=== PATIENT | male | born 1940 | race Caucasian/White ===

== ENCOUNTER 2019-04-20 11:09 | Outpatient (CLI) | payer MEDICARE, BC | END 2019-04-20 11:10 | disposition home or self-care (01) | LOC: DI 11:09 | PROVIDERS: ATTEND Family Medicine | DX: R01.1 Cardiac murmur, unspecified (principal); I35.0 Nonrheumatic aortic (valve) stenosis; I51.7 Cardiomegaly | CPT/HCPCS: 93306 ==

== ENCOUNTER 2020-01-28 08:00 | Outpatient (CLI) | payer MEDICARE, BC ==
[2020-01-28 18:37] LABS: HB2 TOTAL 10.4 g/dL; HEMOGLOBIN A1C 0.49 g/dL; HEMOGLOBIN A1C % 6.5 % (4.6-6.2)
[2020-01-28 18:59] LABS: CALCIUM 8.7 mg/dL (8.5-10.3); CREATININE 1.2 mg/dL (0.6-1.2)
[2020-01-28 19:21] LABS: CREATININE,URINE 90.9 mg/dL; MICROALBUM/CREATININE RATIO,UR 17.6 ug/mg (<30.0); MICROALBUMIN,URINE 1.6 mg/dL (0-300.0)
== END 2020-01-28 23:59 | disposition home or self-care (01) ==
LOC: LAB.WCP 08:00
PROVIDERS: ATTEND Family Medicine
DX: E11.22 Type 2 diabetes mellitus with diabetic chronic kidney disease (principal); N18.3 Chronic kidney disease, stage 3 (moderate)
CPT/HCPCS: 36415; 80048; 82043; 82570; 83036

== ENCOUNTER 2020-05-17 08:00 | Outpatient (CLI) | payer MEDICARE, BC ==
[2020-05-17 18:29] LABS: BASOPHILS % (AUTO) 0.6 %; EOSINOPHILS # (AUTO) 0.1 10^3/uL (0.0-0.7); EOSINOPHILS % (AUTO) 2.6 %; HGB - HEMOGLOBIN 10.9 g/dL (14.0-18.0); LYMPHOCYTES # (AUTO) 1.2 10^3/uL (1.5-3.5); LYMPHOCYTES % (AUTO) 21.5 %; MEAN CORPUSCULAR HEMOGLOBIN 31.5 pg (27.0-31.0); MEAN CORPUSCULAR HGB CONC 33.3 g/dL (32.0-36.0); MEAN CORPUSCULAR VOLUME 94.5 fL (80.0-94.0); MEAN PLATELET VOLUME 12.9 fL (7.4-11.4); MONOCYTES # (AUTO) 0.7 10^3/uL (0.0-1.0); MONOCYTES % (AUTO) 12.1 %; NEUTROPHILS # (AUTO) 3.4 10^3/uL (1.5-6.6); NEUTROPHILS % (AUTO) 62.8 %; PLT - PLATELET COUNT 165 10^3/uL (130-450); RED BLOOD COUNT 3.46 10^6/uL (4.70-6.10); RED CELL DISTRIBUTION WIDTH 15.1 % (12.0-15.0); WHITE BLOOD COUNT 5.5 x10^3/uL (4.8-10.8)
[2020-05-17 19:28] LABS: ALBUMIN 4.1 g/dL (3.2-5.5); ALKALINE PHOSPHATASE 55 IU/L (42-121); ALT ALANINE AMINOTRANSFERASE 17 IU/L (10-60); AST ASPARTATE AMINOTRANSFERASE 19 IU/L (10-42); BUN - BLOOD UREA NITROGEN 36 mg/dL (6-20); CALCIUM 9.5 mg/dL (8.5-10.3); CARBON DIOXIDE - CO2 25 mmol/L (21-32); CHLORIDE 99 mmol/L (101-111); CHOL/HDL RATIO 4.2 (<5.0); CHOLESTEROL 130 mg/dL; CREATININE 1.5 mg/dL (0.6-1.2); GLUCOSE 161 mg/dL (70-100); HDL CHOLESTEROL 31 mg/dL; LDL CHOLESTEROL,CALCULATED 76 mg/dL; LDL/HDL RATIO 2.5 (<3.6); SODIUM 134 mmol/L (135-145); TOTAL PROTEIN 8.1 g/dL (6.7-8.2); VLDL CHOLESTEROL 23 mg/dL
== END 2020-05-17 23:59 | disposition home or self-care (01) ==
LOC: LAB.WCP 08:00
PROVIDERS: ATTEND Family Medicine
DX: E11.22 Type 2 diabetes mellitus with diabetic chronic kidney disease (principal); I12.9 Hypertensive chronic kidney disease with stage 1 through stage 4 chronic kidney disease, or unspecified chronic kidney disease; N18.9 Chronic kidney disease, unspecified; D63.1 Anemia in chronic kidney disease; E78.5 Hyperlipidemia, unspecified
CPT/HCPCS: 36415; 80053; 80061; 83721; 84443; 85025

== ENCOUNTER 2020-11-09 13:08 | Outpatient (CLI) | payer MEDICARE, BC ==
[2020-11-09 18:27] LABS: BASOPHILS % (AUTO) 0.8 %; EOSINOPHILS # (AUTO) 0.2 10^3/uL (0.0-0.7); HCT - HEMATOCRIT 31.9 % (42.0-52.0); HGB - HEMOGLOBIN 10.9 g/dL (14.0-18.0); LYMPHOCYTES # (AUTO) 1.1 10^3/uL (1.5-3.5); LYMPHOCYTES % (AUTO) 22.1 %; MEAN CORPUSCULAR HGB CONC 34.2 g/dL (32.0-36.0); MEAN CORPUSCULAR VOLUME 93.5 fL (80.0-94.0); MEAN PLATELET VOLUME 13.1 fL (7.4-11.4); MONOCYTES # (AUTO) 0.7 10^3/uL (0.0-1.0); MONOCYTES % (AUTO) 13.4 %; NEUTROPHILS # (AUTO) 3.1 10^3/uL (1.5-6.6); NEUTROPHILS % (AUTO) 60.3 %; PLT - PLATELET COUNT 152 10^3/uL (130-450); RED BLOOD COUNT 3.41 10^6/uL (4.70-6.10); RED CELL DISTRIBUTION WIDTH 14.6 % (12.0-15.0); WHITE BLOOD COUNT 5.1 x10^3/uL (4.8-10.8)
[2020-11-09 18:30] LABS: CREATININE,URINE 98.2 mg/dL; MICROALBUM/CREATININE RATIO,UR 15.3 ug/mg (<30.0); MICROALBUMIN,URINE 1.5 mg/dL (0-300.0)
[2020-11-09 18:42] LABS: ALKALINE PHOSPHATASE 57 IU/L (42-121); ALT ALANINE AMINOTRANSFERASE 20 IU/L (10-60); AST ASPARTATE AMINOTRANSFERASE 17 IU/L (10-42); BUN - BLOOD UREA NITROGEN 42 mg/dL (6-20); CALCIUM 9.3 mg/dL (8.5-10.3); CARBON DIOXIDE - CO2 23 mmol/L (21-32); CHLORIDE 99 mmol/L (101-111); CHOL/HDL RATIO 4.1 (<5.0); CHOLESTEROL 130 mg/dL; CREATININE 1.3 mg/dL (0.6-1.2); GFR - MDRD 53 (>89); GLUCOSE 184 mg/dL (70-100); HDL CHOLESTEROL 32 mg/dL; LDL CHOLESTEROL,CALCULATED 73 mg/dL; LDL/HDL RATIO 2.3 (<3.6); POTASSIUM 4.5 mmol/L (3.5-5.0); SODIUM 135 mmol/L (135-145); TOTAL PROTEIN 7.9 g/dL (6.7-8.2); TRIGLYCERIDES 124 mg/dL; VLDL CHOLESTEROL 25 mg/dL
[2020-11-09 18:49] LABS: THYROID STIMULATING HORMONE 2.67 uIU/mL (0.34-5.60)
[2020-11-09 20:28] LABS: ESTIMATED AVERAGE GLUCOSE 143 mg/dL (70-100); HEMOGLOBIN A1c% 6.6 % (4.27-6.07)
== END 2020-11-09 23:59 | disposition home or self-care (01) ==
LOC: LAB.WCP 13:08
PROVIDERS: ATTEND Family Medicine
DX: E11.9 Type 2 diabetes mellitus without complications (principal); E78.5 Hyperlipidemia, unspecified; I49.3 Ventricular premature depolarization; G25.0 Essential tremor; D64.9 Anemia, unspecified; I10 Essential (primary) hypertension
CPT/HCPCS: 36415; 80053; 80061; 82043; 82570; 83036; 83721; 84443; 85025

== ENCOUNTER 2021-05-11 10:25 | Outpatient (CLI) | payer MEDICARE, BC ==
[2021-05-11 18:02] LABS: BASOPHILS # (AUTO) 0.1 10^3/uL (0.0-0.1); BASOPHILS % (AUTO) 0.7 %; EOSINOPHILS # (AUTO) 0.1 10^3/uL (0.0-0.7); EOSINOPHILS % (AUTO) 1.5 %; HCT - HEMATOCRIT 30.7 % (42.0-52.0); LYMPHOCYTES % (AUTO) 14.5 %; MEAN CORPUSCULAR HEMOGLOBIN 31.6 pg (27.0-31.0); MEAN CORPUSCULAR HGB CONC 32.6 g/dL (32.0-36.0); MEAN CORPUSCULAR VOLUME 97.2 fL (80.0-94.0); MEAN PLATELET VOLUME 14.1 fL (7.4-11.4); MONOCYTES # (AUTO) 0.6 10^3/uL (0.0-1.0); MONOCYTES % (AUTO) 8.7 %; NEUTROPHILS # (AUTO) 5.3 10^3/uL (1.5-6.6); NEUTROPHILS % (AUTO) 74.3 %; PLT - PLATELET COUNT 171 10^3/uL (130-450); RED BLOOD COUNT 3.16 10^6/uL (4.70-6.10); RED CELL DISTRIBUTION WIDTH 14.6 % (12.0-15.0); WHITE BLOOD COUNT 7.1 x10^3/uL (4.8-10.8)
[2021-05-11 18:16] LABS: CREATININE,URINE 57.7 mg/dL; MICROALBUM/CREATININE RATIO,UR 32.9 ug/mg (<30.0); MICROALBUMIN,URINE 1.9 mg/dL (0-300.0)
[2021-05-11 18:25] LABS: THYROID STIMULATING HORMONE 3.78 uIU/mL (0.34-5.60)
[2021-05-11 18:29] LABS: ALBUMIN 4.1 g/dL (3.2-5.5); ALBUMIN/GLOBULIN RATIO 1.1 (1.0-2.2); ALKALINE PHOSPHATASE 53 IU/L (42-121); ALT ALANINE AMINOTRANSFERASE 16 IU/L (10-60); AST ASPARTATE AMINOTRANSFERASE 16 IU/L (10-42); BILIRUBIN,TOTAL 1.4 mg/dL (0.2-1.0); BUN - BLOOD UREA NITROGEN 32 mg/dL (6-20); CALCIUM 10.1 mg/dL (8.5-10.3); CARBON DIOXIDE - CO2 22 mmol/L (21-32); CHLORIDE 98 mmol/L (101-111); CHOL/HDL RATIO 4.3 (<5.0); CHOLESTEROL 129 mg/dL; CREATININE 1.3 mg/dL (0.6-1.2); GFR - MDRD 53 (>89); GLUCOSE 151 mg/dL (70-100); HDL CHOLESTEROL 30 mg/dL; LDL CHOLESTEROL,CALCULATED 80 mg/dL; LDL/HDL RATIO 2.7 (<3.6); POTASSIUM 4.5 mmol/L (3.5-5.0); SODIUM 133 mmol/L (135-145); TOTAL PROTEIN 7.7 g/dL (6.7-8.2); TRIGLYCERIDES 97 mg/dL; VLDL CHOLESTEROL 19 mg/dL
[2021-05-11 21:08] LABS: ESTIMATED AVERAGE GLUCOSE 120 mg/dL (70-100); HEMOGLOBIN A1c% 5.8 % (4.27-6.07)
== END 2021-05-11 23:59 | disposition home or self-care (01) ==
LOC: LAB.WCP 10:25
PROVIDERS: ATTEND Family Medicine
DX: E78.5 Hyperlipidemia, unspecified (principal); E11.9 Type 2 diabetes mellitus without complications; I10 Essential (primary) hypertension
CPT/HCPCS: 36415; 80053; 80061; 82043; 82570; 83036; 83721; 84443; 85025

== ENCOUNTER 2021-07-07 14:25 | Emergency (ER) | payer MEDICARE, BC ==
--- NOTE | 2021-07-07 14:56 | ED Physician Documentation ---
History of Present Illness - Stated complaint Stated Complaint: SOA - Chief complaint Chief Complaint: Resp - Additonal information Additional information: 81-year-old male who carries a history of hypertension, diabetes as well as known aortic stenosis presents the emergency department with increased lower extremity edema and orthopnea and exertional dyspnea. He denies any leg pain. He states that for about a year and a half he has been taking 60 mg of Lasix daily. When he is up and about during the day the leg swelling gets progressively worse. When he wakes up in the morning however the edema is improved. He does have some increased swelling on the right leg in comparison to the left. No history of DVT or cancer. No cough, no fevers, no hemoptysis. He does feel bloated in his abdomen. No melena hematochezia. He reports that his physician was concerned he may have GERD or gastritis and started him on omeprazole. The omeprazole made him wheeze so he stopped taking it and now feels that the gastritis has improved without any further treatment Last echocardiogram in our system was completed in April 2019. It showed an ejection fraction of 60%. He had significantly calcified aortic leaflet with severe aortic stenosis. Meds include but not limited to: lasix 60 mg daily, carvedilol, metformin, glipizide, trulicity Review of Systems Constitutional: denies: Fever, Chills Eyes: reports: Reviewed and negative Ears: reports: Reviewed and negative Nose: reports: Reviewed and negative Throat: reports: Reviewed and negative Cardiac: reports: Pedal edema. denies: Chest pain / pressure, Palpitations, Calf pain Respiratory: reports: Dyspnea. denies: Cough, Hemoptysis, Wheezing GI: reports: Abdominal Pain. denies: Nausea, Vomiting, Diarrhea, Hematemesis, Bloody / black stool : denies: Dysuria, Frequency, Hesitancy, Unable to Void Skin: denies: Rash, Lesions Musculoskeletal: reports: Reviewed and negative Neurologic: reports: Reviewed and negative PD PAST MEDICAL HISTORY - Past Medical History Cardiovascular: Congestive heart failure, Hypertension, High cholesterol Endocrine/Autoimmune: Type 2 diabetes HEENT: Glaucoma - Past Surgical History HEENT: Tonsil/Adenoidectomy - Present Medications Home Medications: Ambulatory Orders Medication Instructions Recorded Confirmed Aspirin [Aspir 81] 81 mg PO DAILY 04/08/13 04/08/13 Furosemide [Lasix] 40 mg PO DAILY 04/08/13 04/08/13 Glipizide [Glipizide Xl] 10 mg PO DAILY 04/08/13 04/08/13 Ibuprofen [Motrin] 800 mg PO Q8H PRN #20 tablet 04/08/13 Lisinopril 20 mg 04/08/13 04/08/13 Metformin HCl [Riomet] 1,000 mg PO BID 04/08/13 04/08/13 Simvastatin [Zocor] 10 mg PO HS 04/08/13 04/08/13 Travoprost 0.004% Ophth Drops 1 drops OPTH QPM 04/08/13 04/08/13 [Travatan Z] carvediloL [Carvedilol] 3.125 mg PO BID 04/08/13 04/08/13 methocarbamoL [Robaxin] 500 mg PO Q6H PRN #20 tablet 04/08/13 oxyCODONE/ACET 5/325 [Percocet 5 1 each PO Q4-6H PRN #20 tablet 04/08/13 mg/325 mg] - Allergies Allergies/Adverse Reactions: Allergies Allergy/AdvReac Type Severity Reaction Status Date / Time No Known Drug Allergies Allergy Verified 07/07/21 14:37 - Social History Does the pt smoke?: No Smoking Status: Never smoker Does the pt drink ETOH?: Yes Does the pt have substance abuse?: No - POLST Patient has POLST: No PD ED PE EXPANDED - General General: Alert, No acute distress, Well developed/nourished - Cardiac Cardiac: Regular Rate, Murmur Present (2/6 systolic ejection murmur), Radial strong equal, Pedal strong equal, Cap refill < 2 sec. No: Prolonged cap refill - Respiratory Respiratory: Clear to ausultation hailee. No: Distress, Labored - Abdomen Abdomen: Normal Bowel sounds. No: Tender to palpation - Extremities Extremities: Normal, Pedal edema R, Pedal edema L (Bilateral pitting edema feet to mid calf.), Pedal Pulses Present. No: Deformity, Tenderness - Neuro Neuro: Alert and Oriented X 3, CNII-XII intact, Normal gait, Normal finger nose, Normal speech. No: Confused, Disoriented - GCS Eye Opening: Spontaneous Motor: Obeys Commands Verbal: Oriented Total: 15 Results - Vitals Vitals: Vital Signs - 24 hr 07/07/21 07/07/21 07/07/21 14:33 14:49 15:00 Temperature 36.4 C L Heart Rate 91 89 82 Respiratory 18 23 19 Rate Blood Pressure 119/72 125/81 H 113/75 O2 Saturation 96 93 95 07/07/21 16:00 Temperature Heart Rate 75 Respiratory 20 Rate Blood Pressure 108/68 O2 Saturation 97 Oxygen O2 Source Room air - EKG (time done) 1431 Rate: Rate (enter#) (86) Rhythm: NSR [place]: Normal Intervals: Normal [place] QRS: Normal Ischemia: ST elevation c/w repol Compare to prior EKG: Old EKG unavailable Computer interpretation: Agree with computer - Labs Labs: Laboratory Tests 07/07/21 07/07/21 07/07/21 15:00 15:00 15:00 WBC 5.7 RBC 3.16 L Hgb 10.2 L Hct 29.9 L MCV 94.6 H MCH 32.3 H MCHC 34.1 RDW 15.4 H Plt Count 155 MPV 12.3 H Neut # (Auto) 4.4 Lymph # (Auto) 0.6 L [place] # (Auto) 0.6 Eos # (Auto) 0.1 Baso # (Auto) 0.0 Absolute Nucleated RBC 0.00 Nucleated RBC % 0.0 Sodium 135 Potassium 4.0 Chloride 98 L Carbon Dioxide 27 Anion Gap 10.0 BUN 32 H Creatinine 1.4 H Estimated GFR (MDRD) 49 L Glucose 190 H Calcium 11.2 H Total Bilirubin 2.4 H AST 19 ALT 17 Alkaline Phosphatase 52 Troponin I High Sens B-Natriuretic Peptide 1872 H Total Protein 7.7 Albumin 4.1 Globulin 3.6 Albumin/Globulin Ratio 1.1 Lipase 53 H 07/07/21 15:00 WBC RBC Hgb Hct MCV MCH MCHC RDW Plt Count MPV Neut # (Auto) Lymph # (Auto) [place] # (Auto) Eos # (Auto) Baso # (Auto) Absolute Nucleated RBC Nucleated RBC % Sodium Potassium Chloride Carbon Dioxide Anion Gap BUN Creatinine Estimated GFR (MDRD) Glucose Calcium Total Bilirubin AST ALT Alkaline Phosphatase Troponin I High Sens 21.2 H* B-Natriuretic Peptide Total Protein Albumin Globulin Albumin/Globulin Ratio Lipase - Rads (name of study) CXR Radiology: Final report received (Diffusely increased interstitial markings in both lungs with bibasilar airspace consolidation and atelectasis, along with small bilateral pleural effusions. Findings may represent pulmonary edema or infection.) PD MEDICAL DECISION MAKING - ED course Complexity details: reviewed results, re-evaluated patient, d/w patient, d/w homemaking rehabilitation consultant (Dr. Hurtado) ED course: 81-year-old male presents emergency department for evaluation of worsening orthopnea, dyspnea and lower extremity edema. He has a history of hypertension and diabetes. He last had an echocardiogram completed here at this hospital in April 2019. Showed an ejection fraction preserved at about 60 to 65%. However the aortic valve leaflets were noted to be fairly calcified and he had moderate to severe aortic regurgitation. For about the last 18 months the patient has been getting taking 60 mg of Lasix daily but over the last 4 to 6 weeks this has not limited his edema or dyspnea. Screening labs today show a moderate anemia with a hemoglobin of 10.2. This is seemingly at the patient's baseline in comparison to previous labs. We do note a modestly elevated BUN of 34 and a creatinine of 1.4. However again this is typical of the patient's previous lab values. He was noted to have a BNP of over 1800. Chest x-ray was suggestive of small bilateral Pleural effusions and a chest x- ray pattern consistent with CHF. I did discuss this case with our hospitalist Dr. Hurtado as she is also a rehab manager. Given the patient's history of aortic stenosis and the markedly elevated BNP today she feels he would likely benefit from additional diuresis here in the emergency department and over the next 3 days. But given that he is not hypoxic he would not need to be admitted to the hospital for further treatment. She would recommend an emergent outpatient echocardiogram for further evaluation of his aortic stenosis. This markedly elevated BNP likely represents a worsening systolic heart failure in the setting of aortic stenosis Did attempt multiple times to get in touch with the patient's primary care provider Dr. Richter to arrange outpatient echo however the on-call physician did not return phone calls. Departure - Departure Disposition: 01 Home, Self Care Clinical Impression: Elevated brain natriuretic peptide (BNP) level Systolic heart failure Qualifiers: Heart failure chronicity: acute on chronic Qualified Code(s): I50.23 - Acute on chronic systolic (congestive) heart failure Aortic stenosis Qualifiers: Cardiac valve disease etiology: etiology unspecified Qualified Code(s): I35.0 - Nonrheumatic aortic (valve) stenosis Condition: Stable Record reviewed to determine appropriate education?: Yes Instructions: Aortic Stenosis Ch Follow-Up: Corby Price MD [Primary Care Provider] - Comments: Devon wick were seen in the emergency department today for 1 month of increasing lower extremity edema as well as shortness of air when walking and laying flat. Your screening labs today show that you are developing some heart failure. This is most likely related to the aortic stenosis of your heart. This is limiting the ability of the heart to pump blood out to your body thus fluid backs up in your lungs and legs. It is very important that your primary doctor order an echocardiogram within the next week. This will evaluate how severe the aortic stenosis has gotten. Over the next 3 days (Saturday, Saturday and Saturday) I would like you to take 60 mg of Lasix twice a day. On Saturday you may resume taking 60 mg daily. Your primary doctor will likely need to make a referral for you to a cardiolo gist For longer-term evaluation and management of this aortic stenosis. If over the weekend you are having worsening shortness of air, the swelling in the legs is not improving, you fail to make good urine output, you develop chest pain or have any fainting episodes then you are to return immediately to the ER for a second evaluation.
[2021-07-07 15:04] LABS: BASOPHILS % (AUTO) 0.5 %; EOSINOPHILS # (AUTO) 0.1 10^3/uL (0.0-0.7); EOSINOPHILS % (AUTO) 1.9 %; HCT - HEMATOCRIT 29.9 % (42.0-52.0); HGB - HEMOGLOBIN 10.2 g/dL (14.0-18.0); LYMPHOCYTES # (AUTO) 0.6 10^3/uL (1.5-3.5); LYMPHOCYTES % (AUTO) 10.3 %; MEAN CORPUSCULAR HEMOGLOBIN 32.3 pg (27.0-31.0); MEAN CORPUSCULAR HGB CONC 34.1 g/dL (32.0-36.0); MEAN CORPUSCULAR VOLUME 94.6 fL (80.0-94.0); MEAN PLATELET VOLUME 12.3 fL (7.4-11.4); MONOCYTES # (AUTO) 0.6 10^3/uL (0.0-1.0); MONOCYTES % (AUTO) 10.3 %; NEUTROPHILS # (AUTO) 4.4 10^3/uL (1.5-6.6); NEUTROPHILS % (AUTO) 76.8 %; PLT - PLATELET COUNT 155 10^3/uL (130-450); RED BLOOD COUNT 3.16 10^6/uL (4.70-6.10); RED CELL DISTRIBUTION WIDTH 15.4 % (12.0-15.0); WHITE BLOOD COUNT 5.7 x10^3/uL (4.8-10.8)
--- NOTE | 2021-07-07 15:18 | XRAY Report ---
PROCEDURE: Chest 1 View X-Ray INDICATIONS: Chest Pain TECHNIQUE: One view of the chest was acquired. COMPARISON: None. FINDINGS: Surgical changes and devices: None. Lungs and pleura: Small bilateral pleural effusions. Diffusely increased interstitial markings in bot h lungs with consolidation and atelectasis in the lung bases, right greater than left. Mediastinum: Mediastinal contours appear normal. Heart size is normal. Bones and chest wall: No suspicious bony lesions. Overlying soft tissues appear unremarkable. IMPRESSION: Diffusely increased interstitial markings in both lungs with bibasilar airspace consolidation and ate lectasis, along with small bilateral pleural effusions. Findings may represent pulmonary edema or inf ection. Reviewed by: Arya Dias MD on 07/07/2021 2:16 PM [facility] Approved by: Arya Dias MD on 07/07/2021 2:16 PM [facility] Station ID: [id number]
[2021-07-07 15:22] LABS: ALBUMIN 4.1 g/dL (3.2-5.5); ALBUMIN/GLOBULIN RATIO 1.1 (1.0-2.2); BILIRUBIN,TOTAL 2.4 mg/dL (0.2-1.0); CALCIUM 11.2 mg/dL (8.5-10.3); CREATININE 1.4 mg/dL (0.6-1.2); TOTAL PROTEIN 7.7 g/dL (6.7-8.2)
[2021-07-07] MEDS ORDERED: FUROSEMIDE 40 MG/4 ML VIAL IVP STA (16:12)
[2021-07-07 17:23] VITALS: BP 102/90
== END 2021-07-07 17:48 | disposition home or self-care (01) ==
LOC: ED 14:25
DX: I11.0 Hypertensive heart disease with heart failure (principal); I50.23 Acute on chronic systolic (congestive) heart failure; I35.0 Nonrheumatic aortic (valve) stenosis; E11.9 Type 2 diabetes mellitus without complications; Z79.84 Long term (current) use of oral hypoglycemic drugs
CPT/HCPCS: 36415; 80053; 83690; 83880; 84484; 85025; 93005; 96374; 99284

== ENCOUNTER 2021-07-18 14:50 | Outpatient (CLI) | payer MEDICARE, BC ==
[2021-07-18 18:25] LABS: CALCIUM 10.4 mg/dL (8.5-10.3); CREATININE 1.7 mg/dL (0.6-1.2); POTASSIUM 3.6 mmol/L (3.5-5.0)
== END 2021-07-18 23:59 | disposition home or self-care (01) ==
LOC: LAB.WCP 14:50
PROVIDERS: ATTEND Family Medicine
DX: N18.31 Chronic kidney disease, stage 3a (principal); J90 Pleural effusion, not elsewhere classified; I35.0 Nonrheumatic aortic (valve) stenosis; R60.0 Localized edema
CPT/HCPCS: 36415; 80048; 83880

== ENCOUNTER 2021-08-19 21:27 | Outpatient (CLI) | payer MEDICARE, BC | END 2021-08-19 21:28 | disposition critical access hospital (66) | LOC: EMS 21:27 | DX: R06.00 Dyspnea, unspecified (principal) | CPT/HCPCS: A0425; A0429 ==

== ENCOUNTER 2021-08-19 21:58 | Emergency (ER) | payer MEDICARE, BC ==
--- NOTE | 2021-08-19 22:05 | ED Physician Documentation ---
PD HPI DYSPNEA - Stated complaint Stated Complaint: COUGH/SOA - History obtained from History obtained from: Patient, EMS - History of Present Illness Timing - onset: How many months ago (3) Timing - details: Gradual onset, Constant, Waxing and waning Pain level max: 0 Pain level now: 0 Improved by: Rest Worsened by: Exertion, Laying flat Associated symptoms: Bilateral edema. No: Fever, Cough, Hemoptysis, Wheezing, Chest pain / discomfort, Palpitations, Diaphoresis Recently seen: Emergency Dept (T+R last month for similar symptoms) - Additional information Additional information: BIBA for dyspnea, gradually progressive over past few months. He was T+R from this ED for similar c/o last month, has followed up with PMD and has echo scheduled for next week. He says he can no longer ambulate without becoming severely short of breath and this is why he comes to ED tonight. He also says that tonight when ambulating, he became lightheaded, had generalized weakness, dimmed vision, and tinnitus. He felt like he was going to pass out and this also prompted him to call 911. patient is COVID vaccinated without booster. Review of Systems Constitutional: denies: Fever, Chills, Sweats Cardiac: reports: Pedal edema. denies: Chest pain / pressure, Palpitations Respiratory: reports: Dyspnea, Cough (occasional nonproductive cough). denies: Hemoptysis, Wheezing GI: reports: Reviewed and negative : denies: Dysuria, Frequency Musculoskeletal: reports: Extremity swelling Neurologic: reports: Generalized weakness, Near syncope. denies: Focal weakness, Numbness, Headache PD PAST MEDICAL HISTORY - Past Medical History Cardiovascular: Congestive heart failure, Hypertension, High cholesterol Endocrine/Autoimmune: Type 2 diabetes HEENT: Glaucoma - Past Surgical History HEENT: Tonsil/Adenoidectomy - Present Medications Home Medications: Ambulatory Orders Medication Instructions Recorded Confirmed Aspirin [Aspir 81] 81 mg PO DAILY 04/08/13 08/20/21 Furosemide [Lasix] 40 mg PO DAILY 04/08/13 08/20/21 Glipizide [Glipizide Xl] 5 mg PO DAILY 04/08/13 08/20/21 Simvastatin [Zocor] 10 mg PO HS 04/08/13 08/20/21 Travoprost 0.004% Ophth Drops 1 drops OPTH QPM 04/08/13 08/20/21 [Travatan Z] carvediloL [Carvedilol] 3.125 mg PO BID 04/08/13 08/20/21 Lisinopril [Zestril] 10 mg PO QPM 08/20/21 08/20/21 Metformin HCl [Metformin ER 500 mg PO BID 08/20/21 08/20/21 Osmotic] Multivitamin 1 tab PO DAILY 08/20/21 08/20/21 Ubidecarenone [Co Q-10] 300 mg PO DAILY 08/20/21 08/20/21 Vitamin B Complex 1 tab PO DAILY 08/20/21 08/20/21 - Allergies Allergies/Adverse Reactions: Allergies Allergy/AdvReac Type Severity Reaction Status Date / Time No Known Drug Allergies Allergy Verified 08/19/21 22:08 - Social History Does the pt smoke?: No Smoking Status: Never smoker Does the pt drink ETOH?: Yes Does the pt have substance abuse?: No - POLST Patient has POLST: No PD ED PE NORMAL - Vitals Vital signs reviewed: Yes - General General: Alert and oriented X 3, No acute distress, Well developed/nourished - HEENT HEENT: Moist mucous membranes - Neck Neck: Supple, no meningeal sign - Respiratory Respiratory: No respiratory distress - Abdomen Abdomen: Soft, Non tender, Non distended PD ED PE EXPANDED - Cardiac Cardiac: Tachy, Regular Rhythm - Respiratory Respiratory: Other (diminished lung sounds with bibasilar rales) - Derm Derm: Jaundiced - Extremities Extremities: Pedal edema bilateral Results - Vitals Vitals: Vital Signs - 24 hr 08/20/21 08/20/21 08/20/21 01:06 04:00 05:14 Temperature 36.3 C L Heart Rate 89 97 95 Heart Rate [ Sitting] Heart Rate [ Standing] Heart Rate [ Supine] Respiratory 16 14 23 Rate Blood Pressure 114/85 H 103/63 120/62 Blood Pressure [Sitting] Blood Pressure [Standing] Blood Pressure [Supine] O2 Saturation 96 96 96 08/20/21 08/20/21 08/20/21 05:26 06:50 07:57 Temperature 36.1 C L 36.3 C L Heart Rate 93 87 Heart Rate [ 101 H Sitting] Heart Rate [ 96 Standing] Heart Rate [ 94 Supine] Respiratory 18 28 H Rate Blood Pressure 102/80 105/81 H Blood Pressure 106/77 [Sitting] Blood Pressure 91/61 [Standing] Blood Pressure 99/74 [Supine] O2 Saturation 97 86 L 08/20/21 08/20/21 08/20/21 09:27 10:44 11:56 Temperature 36.2 C L Heart Rate 83 97 86 Heart Rate [ Sitting] Heart Rate [ Standing] Heart Rate [ Supine] Respiratory 24 22 18 Rate Blood Pressure 107/82 H 117/104 H 102/80 Blood Pressure [Sitting] Blood Pressure [Standing] Blood Pressure [Supine] O2 Saturation 100 95 98 Oxygen O2 Source Room air Oxygen Flow Rate 2 - EKG (time done) No standard instances Rate: Rate (enter#) (100) Rhythm: NSR [place]: Normal Intervals: Normal [place] QRS: Normal Ischemia: Normal ST segments - Labs Labs: Laboratory Tests 08/19/21 08/19/21 08/19/21 22:28 22:58 22:58 WBC 6.9 RBC 3.15 L Hgb 9.8 L Hct 30.1 L MCV 95.6 H MCH 31.1 H MCHC 32.6 RDW 16.6 H Plt Count 190 MPV 14.1 H Neut # (Auto) 5.6 Lymph # (Auto) 0.6 L Potter # (Auto) 0.7 Eos # (Auto) 0.0 Baso # (Auto) 0.0 Absolute Nucleated RBC 0.02 Nucleated RBC % 0.3 PT 18.2 H INR 1.6 H APTT 28.4 Sodium Potassium Chloride Carbon Dioxide Anion Gap BUN Creatinine Estimated GFR (MDRD) Glucose Calcium Total Bilirubin AST ALT Alkaline Phosphatase Ammonia Troponin I High Sens B-Natriuretic Peptide Total Protein Albumin Globulin Albumin/Globulin Ratio Lipase Nasal Adenovirus (PCR) NOT DETECTED Nasal B. parapertussis DNA (PCR) NOT DETECTED Nasal Coronavir 229E PCR NOT DETECTED Nasal Coronavir HKU1 PCR NOT DETECTED Nasal Coronavir NL63 PCR NOT DETECTED Nasal Coronavir OC43 PCR NOT DETECTED Nasal Enterovir/Rhinovir PCR NOT DETECTED Nasal Influenza B PCR NOT DETECTED Nasal Influenza A PCR NOT DETECTED Nasal Parainfluen 1 PCR NOT DETECTED Nasal Parainfluen 2 PCR NOT DETECTED Nasal Parainfluen 3 PCR NOT DETECTED Nasal Parainfluen 4 PCR NOT DETECTED Nasal RSV (PCR) NOT DETECTED Nasal B.pertussis DNA PCR NOT DETECTED Nasal C.pneumoniae (PCR) NOT DETECTED Ladarius Human Metapneumo PCR NOT DETECTED Nasal M.pneumoniae (PCR) NOT DETECTED Nasal SARS-CoV-2 (PCR) NOT DETECTED 08/19/21 08/19/21 08/19/21 22:58 22:58 22:58 WBC RBC Hgb Hct MCV MCH MCHC RDW Plt Count MPV Neut # (Auto) Lymph # (Auto) Potter # (Auto) Eos # (Auto) Baso # (Auto) Absolute Nucleated RBC Nucleated RBC % PT INR APTT Sodium 135 Potassium 4.1 Chloride 94 L Carbon Dioxide 26 Anion Gap 15.0 H BUN 60 H Creatinine 1.9 H Estimated GFR (MDRD) 34 L Glucose 201 H Calcium 12.0 H* Total Bilirubin 4.2 H AST 542 H ALT 601 H Alkaline Phosphatase 105 Ammonia Troponin I High Sens 34.2 H* B-Natriuretic Peptide 4023 H Total Protein 8.0 Albumin 3.9 Globulin 4.1 Albumin/Globulin Ratio 1.0 Lipase 27 Nasal Adenovirus (PCR) Nasal B. parapertussis DNA (PCR) Nasal Coronavir 229E PCR Nasal Coronavir HKU1 PCR Nasal Coronavir NL63 PCR Nasal Coronavir OC43 PCR Nasal Enterovir/Rhinovir PCR Nasal Influenza B PCR Nasal Influenza A PCR Nasal Parainfluen 1 PCR Nasal Parainfluen 2 PCR Nasal Parainfluen 3 PCR Nasal Parainfluen 4 PCR Nasal RSV (PCR) Nasal B.pertussis DNA PCR Nasal C.pneumoniae (PCR) Ladarius Human Metapneumo PCR Nasal M.pneumoniae (PCR) Nasal SARS-CoV-2 (PCR) 08/20/21 08/20/21 08/20/21 01:21 01:21 01:21 WBC RBC Hgb Hct MCV MCH MCHC RDW Plt Count MPV Neut # (Auto) Lymph # (Auto) Potter # (Auto) Eos # (Auto) Baso # (Auto) Absolute Nucleated RBC Nucleated RBC % PT INR APTT Sodium Potassium Chloride Carbon Dioxide Anion Gap BUN Creatinine Estimated GFR (MDRD) Glucose Calcium 12.0 H* Total Bilirubin AST ALT Alkaline Phosphatase Ammonia 24.8 Troponin I High Sens 37.0 H* B-Natriuretic Peptide Total Protein Albumin Globulin Albumin/Globulin Ratio Lipase Nasal Adenovirus (PCR) Nasal B. parapertussis DNA (PCR) Nasal Coronavir 229E PCR Nasal Coronavir HKU1 PCR Nasal Coronavir NL63 PCR Nasal Coronavir OC43 PCR Nasal Enterovir/Rhinovir PCR Nasal Influenza B PCR Nasal Influenza A PCR Nasal Parainfluen 1 PCR Nasal Parainfluen 2 PCR Nasal Parainfluen 3 PCR Nasal Parainfluen 4 PCR Nasal RSV (PCR) Nasal B.pertussis DNA PCR Nasal C.pneumoniae (PCR) Ladarius Human Metapneumo PCR Nasal M.pneumoniae (PCR) Nasal SARS-CoV-2 (PCR) - Rads (name of study) chest xray Radiology: Prelim report reviewed, See rad report PD MEDICAL DECISION MAKING - ED course Complexity details: reviewed old records, reviewed results, re-evaluated patient, considered differential, d/w patient ED course: presents with steadily worsening [place] that has progressed to the point of feeling too short of breath to ambulate around his house. He also describes near-syncope that occurred this evening when he stood and tried to ambulate. He has bilateral pleural effusions on CXR , BMP over 4000. He has mildly elevated high-sensitivity troponin that does not have significant change on 2-hour repeat. His LFTs (bilirubin, AST, and ALT) are all elevated; notably, his bilirubin is 4.2 whereas it was 2.4 last month, and his AST/ALT are 542 and 601 (respectively) but were normal last month. His pulse ox on room air is low/mid 90s and there is no significant change when ED RNs ambulated patient (with walker and significant assistance), but patient rapidly felt like he was going to pass out again after only taking a few steps and is thus put into a wheelchair and brought back to his ED bed. when orthostatics are performed, his blood pressure supine is 106/77 sitting, and standing drops to 91/61. [facility] hospitalist is consulted (Dr. Curry). She evaluated patient in ED and performed a bedside echo US; she notes an EF of 20% and findings of critical . She recommends transfer to higher level of care. I discussed the case with Dr. Kothari, wireless team member at [facility], who agrees patient is appropriate for transfer. Due to lack of bed availability (at as well as other appropriate facilities), patient is held in ED pending bed availability. Care of patient turned over to Dr. Awad at end of my shift. Departure - Departure Disposition: 02 Transfer Acute Care Hosp Clinical Impression: Near syncope Dyspnea Qualifiers: Dyspnea type: dyspnea on exertion Qualified Code(s): R06.00 - Dyspnea, unspecified Condition: Stable Discharge Date/Time: 08/20/21 18:55
[2021-08-19] MEDS ORDERED: FUROSEMIDE 40 MG/4 ML VIAL IVP STA (22:19)
--- NOTE | 2021-08-19 22:55 | XRAY Report ---
PROCEDURE: Chest 2 View X-Ray INDICATIONS: dyspnea TECHNIQUE: 2 view(s) of the chest. COMPARISON: 07/07/2021. FINDINGS: Surgical changes and devices: None. Lungs and pleura: Diffuse interstitial prominence has improved. Interval increase in size of small ri ght pleural effusion; very small residual left pleural effusion. No pneumothorax. Streaky bibasilar o pacities likely representing compressive atelectasis. No new focal airspace disease. Mediastinum: Mediastinal contours are normal. Heart size is normal. Bones and chest wall: No suspicious bony abnormalities. Soft tissues appear unremarkable. IMPRESSION: Interval improvement in diffuse interstitial prominence with persistent bilateral pleural effusions. Right pleural effusion has increased in size. Left pleural effusion is slightly smaller. Patchy bibas ilar opacities likely representing atelectasis versus airspace disease. Concurrent mild pulmonary obdulia ma not excluded if clinically appropriate. Reviewed by: Anoop Castle MD on 08/19/2021 10:53 PM PST Approved by: Anoop Castle MD on 08/19/2021 10:53 PM PST Station ID: [id number]
[2021-08-19 23:08] LABS: BASOPHILS % (AUTO) 0.6 %; EOSINOPHILS % (AUTO) 0.6 %; HCT - HEMATOCRIT 30.1 % (42.0-52.0); HGB - HEMOGLOBIN 9.8 g/dL (14.0-18.0); LYMPHOCYTES # (AUTO) 0.6 10^3/uL (1.5-3.5); MEAN CORPUSCULAR HEMOGLOBIN 31.1 pg (27.0-31.0); MEAN CORPUSCULAR HGB CONC 32.6 g/dL (32.0-36.0); MEAN CORPUSCULAR VOLUME 95.6 fL (80.0-94.0); MEAN PLATELET VOLUME 14.1 fL (7.4-11.4); MONOCYTES # (AUTO) 0.7 10^3/uL (0.0-1.0); MONOCYTES % (AUTO) 9.6 %; NEUTROPHILS # (AUTO) 5.6 10^3/uL (1.5-6.6); NEUTROPHILS % (AUTO) 80.9 %; NRBC ABSOLUTE COUNT (AUTO) 0.02 x10^3/uL; NUCLEATED RED BLOOD CELLS AUTO 0.3 /100WBC; PLT - PLATELET COUNT 190 10^3/uL (130-450); RED BLOOD COUNT 3.15 10^6/uL (4.70-6.10); RED CELL DISTRIBUTION WIDTH 16.6 % (12.0-15.0); WHITE BLOOD COUNT 6.9 x10^3/uL (4.8-10.8)
[2021-08-19 23:13] LABS: INR 1.6 (0.8-1.2); PT - PROTHROMBIN TIME 18.2 secs (9.9-12.6)
[2021-08-19 23:21] LABS: PARTIAL THROMBOPLASTIN TIME 28.4 secs (24.9-33.3)
[2021-08-19 23:24] LABS: ALBUMIN 3.9 g/dL (3.2-5.5); BILIRUBIN,TOTAL 4.2 mg/dL (0.2-1.0); CREATININE 1.9 mg/dL (0.6-1.2); POTASSIUM 4.1 mmol/L (3.5-5.0)
[2021-08-19 23:28] LABS: CORONAVIRUS 229E-RESP PCR NOT DETECTED; CORONAVIRUS HKU1-RESP PCR NOT DETECTED; CORONAVIRUS NL63-RESP PCR NOT DETECTED; CORONAVIRUS OC43-RESP PCR NOT DETECTED; HUMAN METAPNEUMOVIRUS NOT DETECTED; INFLUENZA A- RESP PCR PANEL NOT DETECTED; INFLUENZA B - RESP PCR PANEL NOT DETECTED; PARAINFLUENZA VIRUS 1 NOT DETECTED; PARAINFLUENZA VIRUS 3 NOT DETECTED; RHINOVIRUS/ENTEROVIRUS NOT DETECTED; SARS-CoV-2 -RESP PCR PANEL NOT DETECTED
[2021-08-19 23:29] LABS: B. PARAPERTUSSIS- RESP PCR PAN NOT DETECTED; B. PERTUSSIS- RESP PCR PANEL NOT DETECTED; C. PNEUMONIAE- RESP PCR PANEL NOT DETECTED; M. PNEUMONIAE- RESP PCR PANEL NOT DETECTED; PARAINFLUENZA VIRUS 2 NOT DETECTED; PARAINFLUENZA VIRUS 4 NOT DETECTED; RSV- RESP PCR PANEL NOT DETECTED
--- NOTE | 2021-08-20 05:57 | CONSULTATION NOTE ---
Referring Provider Name of Referring Provider:: Dr Cordon Consult Date: 08/20/21 Chief Complaint - Chief Complaint Chief Complaint: SOB, near-syncope History of Present Illness - History Obtained From History obtained from: ED provider, records review and the patient - History of Present Illness HPI Comment/Other: This is an 81-year-old white male with a history of heavy alcohol use in the past but he stopped 1 year ago, HTN, Diabetes on Metformin, Glipizide and Trulicity and a heart murmur lifelong, with most recent Echo done in 2019 showed LVEF 60%, grade 2 (pseudonormalized) diastolic dysfunction and moderate aortic stenosis, mild aortic regurgitation. He has had 3 mos of slowly worsening SOB, leg edema and orthopnea. He presented to this ER 1 month ago with these complaints, his CXR showed pleural effusions, he was not desaturating. Labs showed a high BNP in the s. The ED provider spoke to me then and I had recommended that he get 3 days of higher dose diuretics and have an urgent outpatient Echo done because of concern for newly developing systolic heart failure, since the BNP was 2000. The patient does have an outpatient Echo scheduled to be done later this month, it has not yet been done. The patient presented to the ED this time after calling an ambulance because of severe shortness of breath. He has been so short of breath that he can barely walk between rooms of his house, he reported. In the ED he had work-up with CXR showing chronic bilateral pleural effusions and mild pulmonary vascular congestion. He received Lasix IV x1 which did give him some diuresis. He was tested to see if he needed oxygen or if he desaturated with walking and during the walk he felt presyncopal and needed to sit in a wheelchair immediately. Labs this time show a BNP in the 4000 and elevated LFTs and his exam shows that he is icteric. The ED provider requested a consult from Hospitalist service. I requested that orthostatic vital signs been be done and in fact he does drop his systolic blood pressure from 106 lying to 91 sitting. History - Past Medical History Cardiovascular: reports: Congestive heart failure (unknown if systolic or diastolic, since the Echo is still pending), Hypertension, High cholesterol Respiratory: reports: None Neuro: reports: Tremors (resting tremor of hands) Endocrine/Autoimmune: reports: Type 2 diabetes HEENT: reports: Glaucoma - Past Surgical History HEENT: reports: Tonsil/Adenoidectomy - Family & Social History Living arrangement: At home - Substance History Use: Uses substance without health or social issues: NONE - POLST Patient has POLST: No Meds/Allgy - Home Medications Home Medications: Ambulatory Orders Medication Instructions Recorded Confirmed Aspirin [Aspir 81] 81 mg PO DAILY 04/08/13 08/20/21 Furosemide [Lasix] 40 mg PO DAILY 04/08/13 08/20/21 Glipizide [Glipizide Xl] 5 mg PO DAILY 04/08/13 08/20/21 Simvastatin [Zocor] 10 mg PO HS 04/08/13 08/20/21 Travoprost 0.004% Ophth Drops 1 drops OPTH QPM 04/08/13 08/20/21 [Travatan Z] carvediloL [Carvedilol] 3.125 mg PO BID 04/08/13 08/20/21 Lisinopril [Zestril] 10 mg PO QPM 08/20/21 08/20/21 Metformin HCl [Metformin ER 500 mg PO BID 08/20/21 08/20/21 Osmotic] Multivitamin 1 tab PO DAILY 08/20/21 08/20/21 Ubidecarenone [Co Q-10] 300 mg PO DAILY 08/20/21 08/20/21 Vitamin B Complex 1 tab PO DAILY 08/20/21 08/20/21 - Allergies Allergies/Adverse Reactions: Allergies Allergy/AdvReac Type Severity Reaction Status Date / Time No Known Drug Allergies Allergy Verified 08/19/21 22:08 Review of Systems - Constitutional Constitutional: reports: Weakness - Cardiovascular Cariovascular: reports: Edema, Lightheadedness (Recent near-syncope that he described as "worsening weakness at home"), Exertional dyspnea, Decr. exercise tolerance, Orthopnea - Respiratory Respiratory: reports: Orthopnea, SOB at rest, SOB with exertion - Neurological Neurological: reports: General weakness - All Other Systems All Other Systems: reports: Reviewed and negative, Other (He has had 2 COVID vaccinations, has not yet scheduled his booster.) Exam - Vital Signs Vital Signs: Vital Signs x48h Temp Pulse Pulse Pulse Pulse Resp BP 08/20/21 05:26 101 H 96 94 08/20/21 05:14 36.3 C L 95 23 120/62 08/20/21 04:00 97 14 103/63 08/20/21 01:06 89 16 114/85 H 08/19/21 22:15 36.5 C 100 20 108/69 08/19/21 22:08 36.5 C 100 20 108/69 BP BP BP Pulse Ox 08/20/21 05:26 106/77 91/61 99/74 08/20/21 05:14 96 08/20/21 04:00 96 08/20/21 01:06 96 08/19/21 22:15 96 08/19/21 22:08 96 - Physical Exam General Appearance: positive: No acute distress, Other (Tall, thin white male, HOB elevated) Eyes Bilateral: positive: Other (scleral icterus) ENT: positive: No signs of dehydration Neck: positive: Nml inspection, Other ((+) JVD) Respiratory: positive: Other (diminished breath sounds at bases) Cardiovascular: positive: Regular rate & rhythm, Systolic murmur (2/6, honking, late-peaking, systolic murmur heard loudest in aortic area, radiating across base of heart) Abdomen: positive: Non-tender, No distention Skin: positive: Warm, Dry Extremities: positive: Other (2+ leg edema) Neurologic/Psychiatric: positive: Oriented x3, Other (R hand resting tremor noticed) Conclusion/Plan - Problem List (1) Aortic stenosis Conclusion/Plan: I performed a limited 2D, bedside Echo (as a Board certified Computer Numerical Control Grinder) using the Echo machine in the ED. His Echo showed four-chamber enlargement. LV globa l hypokinesis with EF estimated at 20%. RV function also moderately to severely depressed. The aortic valve appears heavily calcified and there is nearly no mobility of any of the aortic leaflets consistent with severe aortic stenosis. The mitral annulus and mitral valve and chordae are also thickened with slightly restricted mobility. No Doppler was done as it is not available on ED Echo courtney plascencia. Qualifiers: Cardiac valve disease etiology: etiology unspecified (2) Systolic heart failure Conclusion/Plan: This patient has severe or critical aortic stenosis, and significant Systolic heart failure causing pleural effusions, leg edema and passive congestion of the liver causing elevated LFTs and icterus. Most recently his symptoms of weakness with near syncope (confirmed with orthostasis VS check )can also be attributed to his severe aortic stenosis. The triad of having severe aortic stenosis with syncope or near syncope plus depressed systolic function give this patient a 1 year prognosis to live if there is no intervention done (such as valve replacement or TAVR). He would be best served to be transferred to a tertiary care center that has Cardiology and Cardio-thoracic surgery. [facility] we do not have an Echo service available on the weekend to provide a complete Echo exam, and all we can offer him is pharmaceutical management, using beta-blockers and diuretics. RAMAKRISHNA inhibitor's are contraindicated for him now, as well as vasodilators in general, because of his fixed afterload (from the ), and vasodilators would not unload his LV but only cause further orthostatic blood pr essure drops. I explained the findings of the Echo to the patient and the overall recommendation for transfer to higher level of care and he understood and was appreciative to get a quick answer to this problem. I also spoke to Dr Cordon with these recommendations. While he is awaiting transfer from our ED, I recommend continued IV twice daily Lasix use, adjusting the dose based on his creatinine, start Spironolactone 25 mg po daily, start a pure beta-1 beta-dominique such as metoprolol, and not to use his Coreg since it does also have alpha blockade and it will add to his hypotension. The patient should undergo evaluation by heart failure team, have coronary angiography, and be considered for TAVR. Thank you for allowing me to participate in the care of this patient. Qualifiers: Qualified Code(s): I50.23 - Acute on chronic systolic (congestive) heart failure (3) Diabetes mellitus type 2, noninsulin dependent Conclusion/Plan: A diabetic diet and sliding scale insulin coverage are advised, no metformin while he has elevated creat. (4) CKD (chronic kidney disease) Conclusion/Plan: His last creatinine was 1.3 now climbing to 1.9. Avoid nephrotoxins and avoid hypotension. - Lab Results Fish Bones: 08/19/21 22:58 08/19/21 22:58 - EKG Results EKG Interpreted Independently: Yes EKG Comparison: Unchanged from prior EKG EKG Findings: Sinus tachycardia with frequent PACs, LVH voltage.
[2021-08-20] MEDS ORDERED: FUROSEMIDE 20 MG TABLET PO SCH (09:00)
[2021-08-20] MEDS ORDERED: METOPROLOL TARTRATE 25 MG TABLET PO SCH (09:00)
[2021-08-20] MEDS ORDERED: metFORMIN 500 MG TABLET PO SCH ×2 (09:00)
[2021-08-20] MEDS ORDERED: SPIRONOLACTONE 25 MG TABLET PO SCH (09:00)
[2021-08-20] MEDS ORDERED: glipiZIDE 5 MG TABLET PO SCH (09:30)
[2021-08-20 11:59] VITALS: BP 102/80
--- NOTE | 2021-08-20 15:21 | ED Physician Documentation ---
ED Addendum - Addendum Addendum: 08/20/21 15:20 [facility] called back and I spoke with the fabrication department supervisor/hospitalist there, Dr. Kyle Jerome. We discussed the case and went over the diagnostics on the chart and he accepts in transfer. Disposition: Transferred to [facility] Condition: Stable Diagnosis: 1. Congestive heart failure 2 cardiomyopathy 3. Aortic stenosis 4. Hypercalcemia 08/20/21 21:07
[2021-08-21] MEDS ORDERED: glipiZIDE 5 MG TABLET PO SCH ×2 (07:30)
== END 2021-08-20 18:55 | disposition short-term general hospital (02) ==
LOC: EDUNIT# → ED 21:58
DX: I13.0 Hypertensive heart and chronic kidney disease with heart failure and stage 1 through stage 4 chronic kidney disease, or unspecified chronic kidney disease (principal); I50.23 Acute on chronic systolic (congestive) heart failure; I43 Cardiomyopathy in diseases classified elsewhere; I35.0 Nonrheumatic aortic (valve) stenosis; R55 Syncope and collapse; E11.22 Type 2 diabetes mellitus with diabetic chronic kidney disease; N18.9 Chronic kidney disease, unspecified; Z79.84 Long term (current) use of oral hypoglycemic drugs; J90 Pleural effusion, not elsewhere classified; E83.52 Hypercalcemia; I49.1 Atrial premature depolarization; R79.89 Other specified abnormal findings of blood chemistry; Z20.822 Contact with and (suspected) exposure to COVID-19; Z79.82 Long term (current) use of aspirin
CPT/HCPCS: 36415; 71046; 80053; 82140; 82310; 83690; 83880; 84484; 85025; 85610; 85730; 87631; 93005; 96374; 99284; 99285; A9270; 0202U

== ENCOUNTER 2021-11-24 14:00 | Outpatient (CLI) | payer MEDICARE, BC ==
[2021-11-24 18:27] LABS: CALCIUM 9.5 mg/dL (8.5-10.3); CREATININE 1.3 mg/dL (0.6-1.2); POTASSIUM 3.6 mmol/L (3.5-5.0)
== END 2021-11-24 14:01 | disposition home or self-care (01) ==
LOC: LAB.N 14:00
PROVIDERS: ATTEND Internal Medicine Cardiovascular Disease
DX: I50.42 Chronic combined systolic (congestive) and diastolic (congestive) heart failure (principal); N18.30 Chronic kidney disease, stage 3 unspecified; Z95.2 Presence of prosthetic heart valve
CPT/HCPCS: 36415; 80048

== ENCOUNTER 2021-11-30 13:44 | Outpatient (CLI) | payer MEDICARE, BC ==
[2021-11-30 17:55] LABS: INR 1.2 (0.8-1.2); PT - PROTHROMBIN TIME 13.4 secs (9.9-12.6)
[2021-11-30 18:01] LABS: ALBUMIN/GLOBULIN RATIO 1.1 (1.0-2.2); BASOPHILS % (AUTO) 0.7 %; BILIRUBIN,TOTAL 1.3 mg/dL (0.2-1.0); CALCIUM 9.2 mg/dL (8.5-10.3); CREATININE 1.2 mg/dL (0.6-1.2); EOSINOPHILS # (AUTO) 0.2 10^3/uL (0.0-0.7); LYMPHOCYTES % (AUTO) 16.6 %; MEAN CORPUSCULAR HEMOGLOBIN 32.7 pg (27.0-31.0); MEAN CORPUSCULAR HGB CONC 34.5 g/dL (32.0-36.0); MEAN CORPUSCULAR VOLUME 94.8 fL (80.0-94.0); MEAN PLATELET VOLUME 13.1 fL (7.4-11.4); MONOCYTES # (AUTO) 0.6 10^3/uL (0.0-1.0); MONOCYTES % (AUTO) 10.7 %; NEUTROPHILS # (AUTO) 4.1 10^3/uL (1.5-6.6); NEUTROPHILS % (AUTO) 68.7 %; PLT - PLATELET COUNT 162 10^3/uL (130-450); RED BLOOD COUNT 3.06 10^6/uL (4.70-6.10); RED CELL DISTRIBUTION WIDTH 15.6 % (12.0-15.0); TOTAL PROTEIN 7.8 g/dL (6.7-8.2)
== END 2021-11-30 13:45 | disposition home or self-care (01) ==
LOC: LAB.N 13:44
PROVIDERS: ATTEND Physician Assistant
DX: I50.23 Acute on chronic systolic (congestive) heart failure (principal); I26.94 Multiple subsegmental thrombotic pulmonary emboli without acute cor pulmonale
CPT/HCPCS: 36415; 80053; 83880; 85025; 85610

== ENCOUNTER 2022-01-02 13:57 | Outpatient (CLI) | payer MEDICARE, BC | END 2022-01-02 13:58 | disposition home or self-care (01) | LOC: LAB.N 13:57 | PROVIDERS: ATTEND Internal Medicine | DX: Z53.9 Procedure and treatment not carried out, unspecified reason (principal) ==

== ENCOUNTER 2022-01-03 13:52 | Outpatient (CLI) | payer MEDICARE, BC ==
[2022-01-03 18:16] LABS: CALCIUM 9.8 mg/dL (8.5-10.3); CREATININE 1.6 mg/dL (0.6-1.2); POTASSIUM 4.4 mmol/L (3.5-5.0)
== END 2022-01-03 13:53 | disposition home or self-care (01) ==
LOC: LAB.N 13:52
PROVIDERS: ATTEND Internal Medicine
DX: I50.42 Chronic combined systolic (congestive) and diastolic (congestive) heart failure (principal)
CPT/HCPCS: 36415; 80048

== ENCOUNTER 2022-03-01 09:39 | Outpatient (CLI) | payer MEDICARE, BC ==
[2022-03-01 12:14] LABS: BASOPHILS % (AUTO) 0.5 %; EOSINOPHILS # (AUTO) 0.2 10^3/uL (0.0-0.7); EOSINOPHILS % (AUTO) 2.4 %; HCT - HEMATOCRIT 28.8 % (42.0-52.0); LYMPHOCYTES # (AUTO) 0.9 10^3/uL (1.5-3.5); LYMPHOCYTES % (AUTO) 13.5 %; MEAN CORPUSCULAR HEMOGLOBIN 32.8 pg (27.0-31.0); MEAN CORPUSCULAR HGB CONC 34.7 g/dL (32.0-36.0); MEAN CORPUSCULAR VOLUME 94.4 fL (80.0-94.0); MEAN PLATELET VOLUME 12.6 fL (7.4-11.4); MONOCYTES # (AUTO) 0.6 10^3/uL (0.0-1.0); MONOCYTES % (AUTO) 9.4 %; NEUTROPHILS # (AUTO) 4.9 10^3/uL (1.5-6.6); NEUTROPHILS % (AUTO) 73.9 %; PLT - PLATELET COUNT 176 10^3/uL (130-450); RED BLOOD COUNT 3.05 10^6/uL (4.70-6.10); RED CELL DISTRIBUTION WIDTH 14.7 % (12.0-15.0); WHITE BLOOD COUNT 6.6 x10^3/uL (4.8-10.8)
[2022-03-01 12:28] LABS: ALBUMIN 4.1 g/dL (3.2-5.5); ALBUMIN/GLOBULIN RATIO 1.1 (1.0-2.2); ALKALINE PHOSPHATASE 58 IU/L (42-121); ALT ALANINE AMINOTRANSFERASE 16 IU/L (10-60); AST ASPARTATE AMINOTRANSFERASE 18 IU/L (10-42); BILIRUBIN,TOTAL 1.1 mg/dL (0.2-1.0); BUN - BLOOD UREA NITROGEN 48 mg/dL (6-20); CALCIUM 9.8 mg/dL (8.5-10.3); CARBON DIOXIDE - CO2 25 mmol/L (21-32); CHLORIDE 99 mmol/L (101-111); CHOL/HDL RATIO 3.4 (<5.0); CHOLESTEROL 124 mg/dL; CREATININE 1.6 mg/dL (0.6-1.2); GFR - MDRD 42 (>89); GLUCOSE 133 mg/dL (70-100); HDL CHOLESTEROL 36 mg/dL; LDL CHOLESTEROL,CALCULATED 75 mg/dL; LDL/HDL RATIO 2.1 (<3.6); POTASSIUM 4.4 mmol/L (3.5-5.0); SODIUM 135 mmol/L (135-145); TRIGLYCERIDES 67 mg/dL; VLDL CHOLESTEROL 13 mg/dL
[2022-03-01 12:39] LABS: FREE T3 3.19 pg/mL (2.5-3.9)
[2022-03-01 12:40] LABS: FREE T4 (FREE THYROXINE) 0.98 ng/dL (0.58-1.64)
[2022-03-01 12:51] LABS: THYROID STIMULATING HORMONE 4.37 uIU/mL (0.34-5.60)
[2022-03-01 13:01] LABS: CREATININE,URINE 82.1 mg/dL; MICROALBUM/CREATININE RATIO,UR 6.1 ug/mg (<30.0); MICROALBUMIN,URINE 0.5 mg/dL (0-300.0)
[2022-03-01 21:12] LABS: ESTIMATED AVERAGE GLUCOSE 108 mg/dL (70-100); HEMOGLOBIN A1c% 5.4 % (4.27-6.07)
== END 2022-03-01 09:40 | disposition home or self-care (01) ==
LOC: LAB.N 09:39
PROVIDERS: ATTEND Family Medicine
DX: I13.0 Hypertensive heart and chronic kidney disease with heart failure and stage 1 through stage 4 chronic kidney disease, or unspecified chronic kidney disease (principal); I50.30 Unspecified diastolic (congestive) heart failure; E11.22 Type 2 diabetes mellitus with diabetic chronic kidney disease; N18.31 Chronic kidney disease, stage 3a; E11.42 Type 2 diabetes mellitus with diabetic polyneuropathy; I26.94 Multiple subsegmental thrombotic pulmonary emboli without acute cor pulmonale; K21.9 Gastro-esophageal reflux disease without esophagitis
CPT/HCPCS: 36415; 80053; 80061; 82043; 82570; 83036; 83721; 83880; 84439; 84443; 84481; 85025

== ENCOUNTER 2022-06-01 13:15 | Outpatient (CLI) | payer MEDICARE, BC ==
[2022-06-01 18:16] LABS: BASOPHILS % (AUTO) 0.4 %; EOSINOPHILS # (AUTO) 0.1 10^3/uL (0.0-0.7); EOSINOPHILS % (AUTO) 1.7 %; HCT - HEMATOCRIT 29.7 % (42.0-52.0); HGB - HEMOGLOBIN 9.6 g/dL (14.0-18.0); LYMPHOCYTES % (AUTO) 13.9 %; MEAN CORPUSCULAR HEMOGLOBIN 31.1 pg (27.0-31.0); MEAN CORPUSCULAR HGB CONC 32.3 g/dL (32.0-36.0); MEAN CORPUSCULAR VOLUME 96.1 fL (80.0-94.0); MEAN PLATELET VOLUME 13.5 fL (7.4-11.4); MONOCYTES # (AUTO) 0.7 10^3/uL (0.0-1.0); NEUTROPHILS # (AUTO) 5.1 10^3/uL (1.5-6.6); NEUTROPHILS % (AUTO) 73.9 %; PLT - PLATELET COUNT 183 10^3/uL (130-450); RED BLOOD COUNT 3.09 10^6/uL (4.70-6.10); RED CELL DISTRIBUTION WIDTH 14.8 % (12.0-15.0); WHITE BLOOD COUNT 6.9 x10^3/uL (4.8-10.8)
[2022-06-01 18:17] LABS: CALCIUM 9.3 mg/dL (8.5-10.3); CREATININE 1.6 mg/dL (0.6-1.2); POTASSIUM 4.4 mmol/L (3.5-5.0)
[2022-06-01 18:28] LABS: CREATININE,URINE 99.5 mg/dL; MICROALBUM/CREATININE RATIO,UR 23.1 ug/mg (<30.0); MICROALBUMIN,URINE 2.3 mg/dL (0-300.0)
[2022-06-01 21:04] LABS: ESTIMATED AVERAGE GLUCOSE 111 mg/dL (70-100); HEMOGLOBIN A1c% 5.5 % (4.27-6.07)
== END 2022-06-01 13:16 | disposition home or self-care (01) ==
LOC: LAB.F 13:15
PROVIDERS: ATTEND Family Medicine
DX: I13.0 Hypertensive heart and chronic kidney disease with heart failure and stage 1 through stage 4 chronic kidney disease, or unspecified chronic kidney disease (principal); I50.1 Left ventricular failure, unspecified; E11.22 Type 2 diabetes mellitus with diabetic chronic kidney disease; N18.31 Chronic kidney disease, stage 3a; I35.8 Other nonrheumatic aortic valve disorders; Z95.2 Presence of prosthetic heart valve
CPT/HCPCS: 36415; 80048; 82043; 82570; 83036; 83880; 85025

== ENCOUNTER 2022-09-07 10:56 | Outpatient (CLI) | payer MEDICARE, BC ==
[2022-09-07 20:19] LABS: CALCIUM 9.6 mg/dL (8.5-10.3); CREATININE 1.8 mg/dL (0.6-1.2); POTASSIUM 4.3 mmol/L (3.5-5.0)
[2022-09-07 21:25] LABS: ESTIMATED AVERAGE GLUCOSE 120 mg/dL (70-100); HEMOGLOBIN A1c% 5.8 % (4.27-6.07)
== END 2022-09-07 10:57 | disposition home or self-care (01) ==
LOC: LAB.N 10:56
PROVIDERS: ATTEND Family Medicine
DX: E11.22 Type 2 diabetes mellitus with diabetic chronic kidney disease (principal); N18.31 Chronic kidney disease, stage 3a; Z95.2 Presence of prosthetic heart valve
CPT/HCPCS: 36415; 80048; 83036

== ENCOUNTER 2023-04-03 11:23 | Outpatient (CLI) | payer MEDICARE, BC ==
[2023-04-03 18:46] LABS: CALCIUM 9.6 mg/dL (8.5-10.3); CREATININE 1.6 mg/dL (0.6-1.3); POTASSIUM 4.4 mmol/L (3.5-4.5)
[2023-04-03 20:47] LABS: ESTIMATED AVERAGE GLUCOSE 134 mg/dL (70-100); HEMOGLOBIN A1c% 6.3 % (4.27-6.07)
== END 2023-04-03 11:24 | disposition home or self-care (01) ==
LOC: LAB.N 11:23
PROVIDERS: ATTEND Family Medicine
DX: I12.9 Hypertensive chronic kidney disease with stage 1 through stage 4 chronic kidney disease, or unspecified chronic kidney disease (principal); N18.31 Chronic kidney disease, stage 3a; E11.22 Type 2 diabetes mellitus with diabetic chronic kidney disease
CPT/HCPCS: 36415; 80048; 83036

== ENCOUNTER 2023-07-25 12:21 | Outpatient (CLI) | payer MEDICARE, BC ==
[2023-07-25 18:06] LABS: CALCIUM 9.2 mg/dL (8.5-10.3); CREATININE 1.7 mg/dL (0.6-1.3); POTASSIUM 4.2 mmol/L (3.5-4.5)
[2023-07-25 21:01] LABS: ESTIMATED AVERAGE GLUCOSE 163 mg/dL (70-100); HEMOGLOBIN A1c% 7.3 % (4.27-6.07)
== END 2023-07-25 12:22 | disposition home or self-care (01) ==
LOC: LAB.N 12:21
PROVIDERS: ATTEND Family Medicine
DX: I48.0 Paroxysmal atrial fibrillation (principal); Z86.711 Personal history of pulmonary embolism; Z95.2 Presence of prosthetic heart valve; N18.31 Chronic kidney disease, stage 3a; E11.42 Type 2 diabetes mellitus with diabetic polyneuropathy
CPT/HCPCS: 36415; 80048; 83036

== ENCOUNTER 2023-08-30 13:16 | Outpatient (CLI) | payer MEDICARE, BC ==
[2023-08-30 18:22] LABS: CALCIUM 9.2 mg/dL (8.5-10.3); POTASSIUM 4.2 mmol/L (3.5-4.5)
== END 2023-08-30 13:17 | disposition home or self-care (01) ==
LOC: LAB.N 13:16
PROVIDERS: ATTEND Nurse Practitioner
DX: I50.42 Chronic combined systolic (congestive) and diastolic (congestive) heart failure (principal)
CPT/HCPCS: 36415; 80053

== ENCOUNTER 2023-12-02 17:23 | Emergency (ER) | payer MEDICARE, BC ==
[2023-12-02 17:38] VITALS: BP 164/78
--- NOTE | 2023-12-02 17:44 | ED Physician Documentation ---
PD HPI ABD PAIN - Stated complaint Stated Complaint: ABD PX - Chief complaint Chief Complaint: Abd Pain - History obtained from History obtained from: Patient - Additional information Additional information: He has a history of type 2 diabetes and TAVR 2 years ago. He had remote rib fractures on the right and says he cannot has chronic pain in the right upper quadrant. Over the last week or so has developed progressive left flank pain that over the last few days has radiated to the left upper quadrant and now the epigastrium. It was worse on the way here going over bumps. He declines pain or nausea medicine on initial evaluation but says he has been a little queasy with this. No history of abdominal surgeries. His TAVR was complicated by what sounds like may be a retroperitoneal bleed? PD PAST MEDICAL HISTORY - Past Medical History Past Medical History: Yes Cardiovascular: Congestive heart failure, Hypertension, High cholesterol Respiratory: None Neuro: Tremors Endocrine/Autoimmune: Type 2 diabetes HEENT: Glaucoma - Past Surgical History Past Surgical History: Yes HEENT: Tonsil/Adenoidectomy - Present Medications Home Medications: Ambulatory Orders Medication Instructions Recorded Confirmed Aspirin [Aspir 81] 81 mg PO DAILY 04/08/13 08/20/21 Furosemide [Lasix] 40 mg PO DAILY 04/08/13 08/20/21 Glipizide [Glipizide Xl] 5 mg PO DAILY 04/08/13 08/20/21 Simvastatin [Zocor] 10 mg PO HS 04/08/13 08/20/21 Travoprost 0.004% Ophth Drops 1 drops OPTH QPM 04/08/13 08/20/21 [Travatan Z] carvediloL [Carvedilol] 3.125 mg PO BID 04/08/13 08/20/21 Lisinopril [Zestril] 10 mg PO QPM 08/20/21 08/20/21 Metformin HCl [Metformin ER 500 mg PO BID 08/20/21 08/20/21 Osmotic] Multivitamin 1 tab PO DAILY 08/20/21 08/20/21 Ubidecarenone [Co Q-10] 300 mg PO DAILY 08/20/21 08/20/21 Vitamin B Complex 1 tab PO DAILY 08/20/21 08/20/21 Ferrous Sulfate [Feosol] 325 mg PO BID #60 tablet 12/02/23 HYDROcod/ACETAM 5/325 [[place] 5/325] 1 - 2 tab PO Q6H PRN #15 tablet 12/02/23 - Allergies Allergies/Adverse Reactions: Allergies Allergy/AdvReac Type Severity Reaction Status Date / Time No Known Drug Allergies Allergy Verified 12/02/23 17:38 - Social History Does the pt smoke?: No Smoking Status: Never smoker Does the pt drink ETOH?: Yes Does the pt have substance abuse?: No - POLST Patient has POLST: No PD ED PE NORMAL - Vitals Vital signs reviewed: Yes - General General: Alert and oriented X 3, No acute distress - HEENT HEENT: PERRL, EOMI - Neck Neck: Supple, no meningeal sign, No bony TTP - Cardiac Cardiac: RRR, No murmur - Respiratory Respiratory: No respiratory distress, Clear bilaterally - Abdomen Abdomen: Other (He is tender in the epigastrium without surgical signs) - Derm Derm: No rash (No shingles rash in the area of pain.) - Neuro Neuro: Alert and oriented X 3, Normal speech Results - Vitals Vitals: Vital Signs - 24 hr 12/02/23 12/02/23 17:36 20:00 Temperature 36.6 C Heart Rate 91 87 Respiratory 16 16 Rate Blood Pressure 164/78 H O2 Saturation 97 98 Oxygen O2 Source Room air - EKG (time done) 1801 EKG releavant findings:: EKG personally interpreted by author of this note. Relevant findings are: Rate: Rate (enter#) (85) Rhythm: NSR (w pac) [place]: Normal Intervals: Prolonged CO, Prolonged QT QRS: Low voltage Ischemia: Non specific changes. No: ST elevation c/w ischemia - Labs Labs: Laboratory Tests 12/02/23 12/02/23 12/02/23 17:46 17:46 17:46 WBC 6.1 RBC 2.57 L Hgb 7.6 L Hct 24.1 L MCV 93.8 MCH 29.6 MCHC 31.5 L RDW 16.4 H Plt Count 226 MPV 11.6 H Neut # (Auto) 4.7 Lymph # (Auto) 0.7 L [place] # (Auto) 0.5 Eos # (Auto) 0.1 Baso # (Auto) 0.1 Absolute Nucleated RBC 0.00 Nucleated RBC % 0.0 PT 17.3 H INR 1.6 H Sodium 134 L Potassium 4.6 H Chloride 101 Carbon Dioxide 20 L Anion Gap 13.0 BUN 48 H Creatinine 2.2 H Estimated GFR (MDRD) 29 L Glucose 145 H Calcium 9.8 Total Bilirubin 1.2 H AST 12 ALT 4 L Alkaline Phosphatase 102 Total Protein 7.5 Albumin 3.9 Globulin 3.6 Albumin/Globulin Ratio 1.1 Lipase 28 Urine Color Urine Clarity Urine pH Ur Specific [place] Urine Protein Urine Glucose (UA) Urine Ketones Urine Occult Blood Urine Nitrite Urine Bilirubin Urine Urobilinogen Ur Leukocyte Esterase Urine RBC Urine WBC Urine WBC Clumps Ur Squamous Epith Cells Urine Bacteria Ur Microscopic Review Urine Culture Comments 12/02/23 19:55 WBC RBC Hgb Hct MCV MCH MCHC RDW Plt Count MPV Neut # (Auto) Lymph # (Auto) [place] # (Auto) Eos # (Auto) Baso # (Auto) Absolute Nucleated RBC Nucleated RBC % PT INR Sodium Potassium Chloride Carbon Dioxide Anion Gap BUN Creatinine Estimated GFR (MDRD) Glucose Calcium Total Bilirubin AST ALT Alkaline Phosphatase Total Protein Albumin Globulin Albumin/Globulin Ratio Lipase Urine Color YELLOW Urine Clarity CLEAR Urine pH 6.0 Ur Specific [place] 1.010 Urine Protein TRACE Urine Glucose (UA) NEGATIVE Urine Ketones NEGATIVE Urine Occult Blood MODERATE H Urine Nitrite NEGATIVE Urine Bilirubin NEGATIVE Urine Urobilinogen 0.2 (NORMAL) Ur Leukocyte Esterase NEGATIVE Urine RBC TNTC H Urine WBC 11-25 H Urine WBC Clumps PRESENT Ur Squamous Epith Cells FEW Squamous Urine Bacteria Few Ur Microscopic Review INDICATED Urine Culture Comments INDICATED - Rads (name of study) CT of the abdomen pelvis demonstrating 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 Right pleural effusion Relevant Findings:: Final report received, EMP independent interpretation of test 2 view chest x-ray showing decreased volumes with diffuse lung disease that is nonspecific Relevant Findings:: Final report received, EMP independent interpretation of test PD Medical Decision Making - ED course ED course: 83-year-old gentleman with history of remote prostate cancer, TAVR, and type 2 diabetes presents with progressive abdominal pain. He does have some chronic right upper quadrant pain from prior broken ribs. Now having new left upper quadrant pain and now epigastric pain. Differential would include aortic emergency, gastritis, gallbladder disease. It is reproducible so unlikely to be ACS. Initial workup in the emergency department demonstrates a CBC with normal white cell count. He has been anemic for quite some time but this is the worst value he has had, last value on the chart was about a year ago at which point his hemoglobin was 9.9. His INR is slightly elevated at 1.6. Chemistries are notable for acute on chronic kidney injury with prerenal azotemia, mild hyponatremia, mild elevation in bilirubin at 1.2. His EKG does not show significant ischemic changes especially when compared to prior. CT imaging demonstrates what looks like a metastatic malignancy in the pelvis with causing bilateral hydronephrosis, to my eye left worse than right. He does have some AKIN in the setting of this and I discussed the case by phone with Dr. Yanick Jiménez who recommends adding on a PSA. He does not think he needs emergent stenting but will get him into the office for likely subsequent stenting in the near future. Recommends an iron supplement for the worsening anemia. Not seeing anything in the history or physical nor the labs to suggest an acute infection. He really did not have much in the way of bacteriuria and he does have a lot of hematuria which I suspect explains the small number of white cells in his urine. There is no nitrite or leukocyte esterase though. His white count is 6. 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 Acute on chronic kidney failure Qualifiers: Acute renal failure type: unspecified Chronic kidney disease stage: unspecified stage Qualified Code(s): N17.9 - Acute kidney failure, unspecified Anemia Qualifiers: Other causes of anemia: chronic disease, neoplastic Condition: Good Record reviewed to determine appropriate education?: Yes Prescriptions: Ferrous Sulfate [Feosol] 325 mg PO BID #60 tablet HYDROcod/ACETAM 5/325 [[place] 5/325] 1 - 2 tab PO Q6H PRN #15 tablet PRN Reason: Pain Comments: You are seen today for worsening and new abdominal pain and unfortunately we found that there is likely a malignancy in the pelvis that is blocking the kidneys. This has led to some worsening of your already not great kidney function and likely cause some worsening of a chronic anemia as well. I discussed your case by phone with our urologist, Dr. Blackduck who plans to get you into the clinic soon for evaluation and requested that I add on a PSA. We are starting you on an iron supplement for the anemia. I sent your prescriptions [facility] to the [facility] in [place]. I am prescribing a short course of narcotic pain medication for you. These are potentially dangerous and addictive medications that should be used carefully. These medications may constipate you. Take an advh-ljz-eicsgzh stool softener (docusate) twice daily with plenty of water while taking these medications. If you go 24 hours without a bowel movement, take riwk-imk-gwsshmj miralax, per package instructions. Do not drink or drive while taking these medications. If you received narcotic or sedating medications while in the emergency department, do not drive for 24 hours. Store this medication in a safe, secure place and out of reach of children. It is a violation of federal law to give or sell this medication to another person or to use in a manner other than prescribed. The ED will not refill narcotic prescriptions, including prescriptions lost or stolen. To dispose of unwanted medications: 1. [facility] provides a drop box for medication in pill form only (no liquids) 8:00 am to 4:30 p.m. Saturday-Saturday in the lobby of the [facility], [address] [place] [address]. Empty pills into ziplock bag before disposal. Call [phone] for information. 2.[employer] is a free service available to all [facility] residents. Go to [email or web address] Note that many narcotic pain relievers also contain Tylenol/acetaminophen. Please ensure that your total dose of acetaminophen from all sources does not exceed 3 g (3000 mg) per day. Forms: PCP List Discharge Date/Time: 12/02/23 20:30
[2023-12-02 17:52] LABS: BASOPHILS # (AUTO) 0.1 10^3/uL (0.0-0.1); BASOPHILS % (AUTO) 0.8 %; EOSINOPHILS # (AUTO) 0.1 10^3/uL (0.0-0.7); EOSINOPHILS % (AUTO) 1.3 %; HCT - HEMATOCRIT 24.1 % (42.0-52.0); HGB - HEMOGLOBIN 7.6 g/dL (14.0-18.0); LYMPHOCYTES # (AUTO) 0.7 10^3/uL (1.5-3.5); LYMPHOCYTES % (AUTO) 11.5 %; MEAN CORPUSCULAR HEMOGLOBIN 29.6 pg (27.0-31.0); MEAN CORPUSCULAR HGB CONC 31.5 g/dL (32.0-36.0); MEAN CORPUSCULAR VOLUME 93.8 fL (80.0-94.0); MEAN PLATELET VOLUME 11.6 fL (7.4-11.4); MONOCYTES # (AUTO) 0.5 10^3/uL (0.0-1.0); MONOCYTES % (AUTO) 7.6 %; NEUTROPHILS # (AUTO) 4.7 10^3/uL (1.5-6.6); NEUTROPHILS % (AUTO) 77.5 %; PLT - PLATELET COUNT 226 10^3/uL (130-450); RED BLOOD COUNT 2.57 10^6/uL (4.70-6.10); RED CELL DISTRIBUTION WIDTH 16.4 % (12.0-15.0); WHITE BLOOD COUNT 6.1 x10^3/uL (4.8-10.8)
[2023-12-02 17:57] LABS: INR 1.6 (0.8-1.2); PT - PROTHROMBIN TIME 17.3 secs (9.9-12.6)
[2023-12-02 18:07] LABS: ALBUMIN 3.9 g/dL (3.2-5.5); ALBUMIN/GLOBULIN RATIO 1.1 (1.0-2.2); BILIRUBIN,TOTAL 1.2 mg/dL (0.2-1.0); CALCIUM 9.8 mg/dL (8.5-10.3); CREATININE 2.2 mg/dL (0.6-1.3); POTASSIUM 4.6 mmol/L (3.5-4.5); TOTAL PROTEIN 7.5 g/dL (6.4-8.9)
[2023-12-02] MEDS: SODIUM CHLORIDE 0.9% 1,000 ML IV STA (18:16)
--- NOTE | 2023-12-02 18:49 | CT Report ---
PROCEDURE: Abdomen/Pelvis WO INDICATIONS: abd pain alice TECHNIQUE: A CT scan of the abdomen and pelvis was performed without the use of intravenous contrast. Images we re recorded and evaluated at appropriate window settings. Reformats: coronal and sagittal. For radiat ion dose reduction, the following was used: automated exposure control, adjustment of mA and/or kV ac cording to patient size. COMPARISON: None. FINDINGS: Image quality: Diagnostic Lower chest: Moderate right pleural effusion. Underlying opacities and septal thickening, possibly at electasis and additional airspace disease with edema. Small left pleural effusion. Coronary and annul ar calcification of the heart. Small hiatal hernia. Liver: Solid organs not well evaluated without intravenous contrast. No contour deforming lesion. Gallbladder and biliary system: Unremarkable, nondilated Pancreas: No ductal dilation Spleen: Nonenlarged. Small splenic granuloma Adrenals: No discrete nodules Kidneys: Moderate bilateral hydronephrosis Vessels and lymph nodes: Retroperitoneal lymphadenopathy, for example preaortic upper abdominal lymph node measures up to 2.9 cm in short axis. Lymphadenopathy extends to the pelvis. No abdominal aortic aneurysm Bowel and peritoneum: No evidence of small bowel obstruction. Colonic diverticula are seen. No draina ble abscess Small amount nonspecific free fluid is present. Body wall: Small fat-containing umbilical hernia Pelvis: Prostate radiation markers. Ill-defined infiltrative soft tissue at the bladder neck and the base of the prostate. Small fat-containing left inguinal hernia. Bones: There are degenerative changes. Diffuse sclerotic metastases. Nonacute appearing rib deformiti es. IMPRESSION: Metastatic malignancy with infiltrative pelvic soft tissue surrounding the bladder neck and base of t he prostate. Retroperitoneal metastatic lymphadenopathy and sclerotic bone metastases. Prostate adeno carcinoma is favored. Moderate hydronephrosis secondary to malignant soft tissue blocking the UVJs. Moderate right pleural effusion. Underlying airspace opacities and septal thickening, likely airspace disease, atelectasis, and edema. Small left effusion. Other findings as above. Limited noncontrast CT. Reviewed by: Sergio House MD on 12/02/2023 6:47 PM PDT Approved by: Sergio House MD on 12/02/2023 6:47 PM PDT Station ID: [id number]
[2023-12-02] MEDS: ONDANSETRON 4 MG/2 ML VIAL IVP STA (19:15)
[2023-12-02] MEDS: HYDROmorphone 1 MG/ML CARPUJECT IVP STA (19:29)
--- NOTE | 2023-12-02 19:49 | XRAY Report ---
PROCEDURE: Chest 2V INDICATIONS: pleural eff TECHNIQUE: 2 views of the chest were acquired. COMPARISON: 08/19/2021 FINDINGS: Surgical changes and devices: None. Lungs and pleura: Low lung volumes. Small bilateral effusions. Moderate diffuse lung disease. Mediastinum: Normal heart size. Cardiac mediastinal contours unchanged Bones and chest wall: Degenerative findings. IMPRESSION: Low lung volumes with moderate diffuse lung disease, likely infection and/or edema. Small effusions. Consider future imaging surveillance to assess for resolution. Reviewed by: Sergio House MD on 12/02/2023 7:48 PM PDT Approved by: Sergio House MD on 12/02/2023 7:48 PM PDT Station ID: [id number]
[2023-12-02 20:02] LABS: BILIRUBIN,URINE NEGATIVE (NEGATIVE); GLUCOSE, URINE (UA) NEGATIVE (NEGATIVE); KETONES,URINE (UA) NEGATIVE (NEGATIVE); LEUKOCYTE ESTERASE, URINE NEGATIVE (NEGATIVE); NITRITE,URINE NEGATIVE (NEGATIVE); OCCULT BLOOD,URINE MODERATE (NEGATIVE); PROTEIN,URINE TRACE mg/dL (NEGATIVE); UROBILINOGEN,URINE 0.2 (NORMAL) E.U./dL (NORMAL)
[2023-12-02 20:07] LABS: CLARITY,URINE CLEAR (CLEAR)
[2023-12-02 20:12] VITALS: O2SAT 98
[2023-12-02] MEDS: HYDROcod/ACET 5/325 Prepack 4 PO STA (20:25)
[2023-12-02 20:28] LABS: BACTERIA,URINE Few /HPF (None Seen); RBC,URINE TNTC /HPF (0-5); SQUAMOUS EPITHELIAL CELL,UR FEW Squamous (<= Few); WBC CLUMPS,URINE PRESENT
== END 2023-12-02 20:30 | disposition home or self-care (01) ==
LOC: ED 17:23
DX: C78.6 Secondary malignant neoplasm of retroperitoneum and peritoneum (principal); C77.2 Secondary and unspecified malignant neoplasm of intra-abdominal lymph nodes; C79.51 Secondary malignant neoplasm of bone; D63.0 Anemia in neoplastic disease; N13.30 Unspecified hydronephrosis; N17.9 Acute kidney failure, unspecified; N18.9 Chronic kidney disease, unspecified; R31.9 Hematuria, unspecified
CPT/HCPCS: 36415; 71046; 74176; 80053; 81001; 83690; 84154; 85025; 85610; 87086; 93005; 96374; 96375; 99284; 99285; J1170; 81003

== ENCOUNTER 2023-12-05 15:50 | Outpatient (CLI) | payer MEDICARE, BC | END 2023-12-05 23:59 | disposition critical access hospital (66) | LOC: EMS 15:50 | DX: M54.50 Low back pain, unspecified (principal); R11.0 Nausea; R39.89 Other symptoms and signs involving the genitourinary system | CPT/HCPCS: A0425; A0427 ==

== ENCOUNTER 2023-12-05 16:26 | Emergency (ER) | payer MEDICARE, BC ==
[2023-12-05] MEDS: oxyCODONE 5 MG TABLET PO STA (16:41)
--- NOTE | 2023-12-05 16:45 | ED Physician Documentation ---
History of Present Illness - Stated complaint Stated Complaint: PX RT SIDE/BACK - Chief complaint Chief Complaint: Abd Pain - History obtained from History obtained from: Patient, Family - History of Present Illness Timing: How many days ago (4) Pain level max: 9 Pain level now: 3 - Additonal information Additional information: 83-year-old male presents to the emergency department stating that he was seen here 3 days ago and diagnosed with metastatic prostate cancer. He states he has been taking one 5 mg hydrocodone every 6 hours for pain at home but his pain has been very poorly controlled. EMS gave him a total of 100 mcg of fentanyl en route and he states that he feels much better now. Has decreased appetite. He was supposed to see urology today but because of the pain was unable to follow- up. Lives at home with his . No vomiting. No diarrhea. No blood in the stool. Most of the pain is in the lower abdomen. Review of Systems Constitutional: denies: Fever, Chills Nose: denies: Rhinorrhea / runny nose, Congestion Respiratory: denies: Cough GI: denies: Vomiting, Hematemesis, Bloody / black stool : denies: Dysuria, Frequency, Hesitancy Skin: denies: Rash Musculoskeletal: denies: Neck pain, Back pain Neurologic: denies: Headache PD PAST MEDICAL HISTORY - Past Medical History Cardiovascular: Congestive heart failure, Hypertension, High cholesterol Respiratory: None Neuro: Tremors Endocrine/Autoimmune: Type 2 diabetes HEENT: Glaucoma - Past Surgical History Past Surgical History: Yes HEENT: Tonsil/Adenoidectomy - Present Medications Home Medications: Ambulatory Orders Medication Instructions Recorded Confirmed Aspirin [Aspir 81] 81 mg PO DAILY 04/08/13 08/20/21 Furosemide [Lasix] 40 mg PO DAILY 04/08/13 08/20/21 Glipizide [Glipizide Xl] 5 mg PO DAILY 04/08/13 08/20/21 Simvastatin [Zocor] 10 mg PO HS 04/08/13 08/20/21 Travoprost 0.004% Ophth Drops 1 drops OPTH QPM 04/08/13 08/20/21 [Travatan Z] carvediloL [Carvedilol] 3.125 mg PO BID 04/08/13 08/20/21 Lisinopril [Zestril] 10 mg PO QPM 08/20/21 08/20/21 Metformin HCl [Metformin ER 500 mg PO BID 08/20/21 08/20/21 Osmotic] Multivitamin 1 tab PO DAILY 08/20/21 08/20/21 Ubidecarenone [Co Q-10] 300 mg PO DAILY 08/20/21 08/20/21 Vitamin B Complex 1 tab PO DAILY 08/20/21 08/20/21 Ferrous Sulfate [Feosol] 325 mg PO BID #60 tablet 12/02/23 HYDROcod/ACETAM 5/325 [[place] 5/325] 1 - 2 tab PO Q6H PRN #15 tablet 12/02/23 Bicalutamide [Casodex] 50 mg PO DAILY #30 tablet 12/05/23 oxyCODONE [Roxicodone] 5 - 10 mg PO Q6H PRN #30 tablet 12/05/23 MDD 6 - Allergies Allergies/Adverse Reactions: Allergies Allergy/AdvReac Type Severity Reaction Status Date / Time No Known Drug Allergies Allergy Verified 12/05/23 16:37 - Social History Does the pt smoke?: No Smoking Status: Never smoker Does the pt drink ETOH?: Yes Does the pt have substance abuse?: No - POLST Patient has POLST: No PD ED PE NORMAL - Vitals Vital signs reviewed: Yes - General General: Alert and oriented X 3, No acute distress, Other (pale appearing) - HEENT HEENT: PERRL, Moist mucous membranes - Neck Neck: Supple, no meningeal sign - Cardiac Cardiac: RRR, Strong equal pulses - Respiratory Respiratory: No respiratory distress, Clear bilaterally - Abdomen Abdomen: Normal bowel sounds, Soft, Non tender, Other (distended abdomen) - Back Back: No spinal TTP - Derm Derm: Warm and dry - Extremities Extremities: No edema, No calf tenderness / cord - Neuro Neuro: Alert and oriented X 3 - Psych Psych: Normal mood, Normal affect Results - Vitals Vitals: Vital Signs - 24 hr 12/05/23 12/05/23 12/05/23 16:31 17:28 18:36 Temperature 36.2 C L Heart Rate 91 84 91 Respiratory 20 19 19 Rate Blood Pressure 152/131 H 109/58 L 138/71 H O2 Saturation 95 96 95 Oxygen O2 Source Room air - Labs Labs: Laboratory Tests 12/02/23 12/05/23 12/05/23 17:46 16:43 16:43 WBC 7.3 RBC 2.59 L Hgb 8.0 L Hct 24.8 L MCV 95.8 H MCH 30.9 MCHC 32.3 RDW 16.6 H Plt Count 214 MPV 11.8 H Neut # (Auto) 6.2 Lymph # (Auto) 0.4 L Esmer[place]da # (Auto) 0.7 Eos # (Auto) 0.0 Baso # (Auto) 0.0 Absolute Nucleated RBC 0.00 Nucleated RBC % 0.0 PT INR APTT Sodium Potassium Chloride Carbon Dioxide Anion Gap BUN Creatinine Estimated GFR (MDRD) Glucose Calcium Phosphorus Magnesium Total Bilirubin AST ALT Alkaline Phosphatase Total Protein Albumin Globulin Albumin/Globulin Ratio Lipase Total PSA Blood Type A POSITIVE Blood Type Recheck A POSITIVE Antibody Screen NEGATIVE 12/05/23 12/05/23 12/05/23 16:43 16:43 16:50 WBC RBC Hgb Hct MCV MCH MCHC RDW Plt Count MPV Neut # (Auto) Lymph # (Auto) Esmeralda # (Auto) Eos # (Auto) Baso # (Auto) Absolute Nucleated RBC Nucleated RBC % PT 15.9 H INR 1.5 H APTT 29.2 Sodium 131 L Potassium 4.6 H Chloride 101 Carbon Dioxide 18 L Anion Gap 12.0 BUN 40 H Creatinine 2.0 H Estimated GFR (MDRD) 32 L Glucose 165 H Calcium 9.9 Phosphorus 3.7 Magnesium 1.6 L Total Bilirubin 1.6 H AST 12 ALT 4 L Alkaline Phosphatase 127 H Total Protein 7.0 Albumin 3.7 Globulin 3.3 Albumin/Globulin Ratio 1.1 Lipase 11 Total PSA > 1420.000 H Blood Type Blood Type Recheck Antibody Screen PD Medical Decision Making - ED course Complexity details: reviewed results, re-evaluated patient, considered differential, d/w patient, d/w account consultant ED course: Pain is very well-controlled in the emergency department. He was given IV fluids. Tolerating p.o. without difficulty. Dr. Jiménez, urology came and evaluated the patient as well. The patient was comfortable going home with stronger pain medication. We will change him from 1 hydrocodone every 6 hours to 1-2 oxycodone every 6 hours. He does have anemia and chronic renal failure. Does not meet criteria for transfusion at this point. No significant shortness of breath or hypoxia. No fevers. Patient counseled regarding signs and symptoms for which I believe and urgent re-evaluation would be necessary. Patient with good understanding of and agreement to plan and is comfortable going home at this time This document was made in part using voice recognition software. While efforts are made to proofread this document, sound alike and grammatical errors may occur. Departure - Departure Disposition: Home, Self Care Clinical Impression: Metastatic cancer Qualifiers: Area of secondary neoplastic involvement: unspecified site Qualified Code(s): C79.9 - Secondary malignant neoplasm of unspecified site Condition: Good Instructions: Cancer Prostate Follow-Up: Corby Price MD [Primary Care Provider] - Yanick Jiménez MD [Provider Admit Priv/Credential] - Prescriptions: oxyCODONE [Roxicodone] 5 - 10 mg PO Q6H PRN #30 tablet MDD 6 PRN Reason: pain Comments: Your prescription was sent to [facility] in [place]. Please follow-up with your doctor and urology for further care. Make sure you are drinking plenty of fluids. Please continue to use the oxycodone, 1 to 2 pills every 6 hours as needed for pain. If you are having uncontrolled pain, please contact your doctor. I am prescribing a short course of narcotic pain medication for you. These are potentially dangerous and addictive medications that should be used carefully. These medications may constipate you. Take an [id number] stool softener (docusate) twice daily with plenty of water while taking these medications. If you go 24 hours without a bowel movement, take [id number] miralax, per package instructions. Do not drink or drive while taking these medications. If you received narcotic or sedating medications while in the emergency department, do not drive for 24 hours. Store this medication in a safe, secure place and out of reach of children. It is a violation of federal law to give or sell this medication to another person or to use in a manner other than prescribed. The ED will not refill narcotic prescriptions, including prescriptions lost or stolen. To dispose of unwanted medications: 1. [facility] at [address] in [place] has a medication drop box. They accept prescription medications (in pill form) Saturday through Saturday 9:00 a.m. to 5:00 p.m. 2. The [facility] [employer] accepts prescription medications (in pill form only) for disposal year round. Call for more information. 3. Contact the [facility] for the next [facility] sponsored prescription drug collection event. , [phone], or [phone]; Forms: PCP List Discharge Date/Time: 12/05/23 18:36
[2023-12-05 16:49] LABS: BASOPHILS % (AUTO) 0.3 %; EOSINOPHILS % (AUTO) 0.3 %; HCT - HEMATOCRIT 24.8 % (42.0-52.0); LYMPHOCYTES # (AUTO) 0.4 10^3/uL (1.5-3.5); LYMPHOCYTES % (AUTO) 5.9 %; MEAN CORPUSCULAR HEMOGLOBIN 30.9 pg (27.0-31.0); MEAN CORPUSCULAR HGB CONC 32.3 g/dL (32.0-36.0); MEAN CORPUSCULAR VOLUME 95.8 fL (80.0-94.0); MEAN PLATELET VOLUME 11.8 fL (7.4-11.4); MONOCYTES # (AUTO) 0.7 10^3/uL (0.0-1.0); NEUTROPHILS # (AUTO) 6.2 10^3/uL (1.5-6.6); PLT - PLATELET COUNT 214 10^3/uL (130-450); RED BLOOD COUNT 2.59 10^6/uL (4.70-6.10); RED CELL DISTRIBUTION WIDTH 16.6 % (12.0-15.0); WHITE BLOOD COUNT 7.3 x10^3/uL (4.8-10.8)
[2023-12-05 16:59] LABS: PARTIAL THROMBOPLASTIN TIME 29.2 secs (24.9-33.3)
[2023-12-05 17:04] LABS: INR 1.5 (0.8-1.2); PT - PROTHROMBIN TIME 15.9 secs (9.9-12.6)
[2023-12-05 17:05] LABS: MAGNESIUM 1.6 mg/dL (1.7-2.3)
[2023-12-05 17:12] LABS: ALBUMIN 3.7 g/dL (3.2-5.5); ALBUMIN/GLOBULIN RATIO 1.1 (1.0-2.2); BILIRUBIN,TOTAL 1.6 mg/dL (0.2-1.0); CALCIUM 9.9 mg/dL (8.5-10.3); PHOSPHORUS 3.7 mg/dL (2.5-5.0); POTASSIUM 4.6 mmol/L (3.5-4.5)
[2023-12-05] MEDS: SODIUM CHLORIDE 0.9% 1,000 ML IV STA ×2 (17:22→17:40)
--- NOTE | 2023-12-05 18:08 | CONSULTATION NOTE ---
Referring Provider Name of Referring Provider:: Dr Meeks Consult Date: 12/05/23 Chief Complaint - Chief Complaint Chief Complaint: back pain History of Present Illness - Admitted From Admitted From:: ER - History Obtained From Records Reviewed: ER and hospital History obtained from: Hospital notes and patient - History of Present Illness HPI Comment/Other: Devon is an 83-year-old male with a history of Karla 6 prostate cancer diagnosed about 14 years ago. He was treated with brachytherapy. He was followed by Dr. Mishra for a few years where his PSA did slowly rise from 0.4-1.1 from [id number] however he was lost to follow-up after this point his doctor who retired. He had no further PSA testing performed. More recently he is dealing with vague abdominal pains. He has longstanding rib pain from a prior rib injury. He presented on December 01 with worsening abdominal pains. He had a CT scan which showed diffuse osseous metastatic disease along with a obstructing prostate soft tissue mass consistent with a locally invasive and metastatic prostate cancer. A free PSA was sent and his PSA was greater than 176. He was meant to see me in the office today however he had too much pain and could not come in. I asked him to get an ambulance to go to ER for further evaluation. In the ER he clinically appeared stable. He appeared much better after stronger narcotic pain medications. His renal function is stable though slightly elevated at his baseline from 1.7. Seen today at his bedside with his History - Past Medical History Cardiovascular: reports: Congestive heart failure, Hypertension, High cholesterol Respiratory: reports: None Neuro: reports: Tremors Endocrine/Autoimmune: reports: Type 2 diabetes HEENT: reports: Glaucoma - Past Surgical History HEENT: reports: Tonsil/Adenoidectomy - Substance History Use: Uses substance without health or social issues: NONE - POLST Patient has POLST: No Meds/Allgy - Home Medications Home Medications: Ambulatory Orders Medication Instructions Recorded Confirmed Aspirin [Aspir 81] 81 mg PO DAILY 04/08/13 08/20/21 Furosemide [Lasix] 40 mg PO DAILY 04/08/13 08/20/21 Glipizide [Glipizide Xl] 5 mg PO DAILY 04/08/13 08/20/21 Simvastatin [Zocor] 10 mg PO HS 04/08/13 08/20/21 Travoprost 0.004% Ophth Drops 1 drops OPTH QPM 04/08/13 08/20/21 [Travatan Z] carvediloL [Carvedilol] 3.125 mg PO BID 04/08/13 08/20/21 Lisinopril [Zestril] 10 mg PO QPM 08/20/21 08/20/21 Metformin HCl [Metformin ER 500 mg PO BID 08/20/21 08/20/21 Osmotic] Multivitamin 1 tab PO DAILY 08/20/21 08/20/21 Ubidecarenone [Co Q-10] 300 mg PO DAILY 08/20/21 08/20/21 Vitamin B Complex 1 tab PO DAILY 08/20/21 08/20/21 Ferrous Sulfate [Feosol] 325 mg PO BID #60 tablet 12/02/23 HYDROcod/ACETAM 5/325 [[place] 5/325] 1 - 2 tab PO Q6H PRN #15 tablet 12/02/23 Bicalutamide [Casodex] 50 mg PO DAILY #30 tablet 12/05/23 - Allergies Allergies/Adverse Reactions: Allergies Allergy/AdvReac Type Severity Reaction Status Date / Time No Known Drug Allergies Allergy Verified 12/05/23 16:37 Exam - Vital Signs Reviewed Vital Signs: Yes Vital Signs: Vital Signs x48h Temp Pulse Resp BP Pulse Ox 12/05/23 17:28 84 19 109/58 L 96 12/05/23 16:31 36.2 C L 91 20 152/131 H 95 - Physical Exam General Appearance: positive: No acute distress Cardiovascular: positive: Tachycardia Abdomen: positive: Non-tender Conclusion and Plan - Lab Results Laboratory Results 12/05/23 16:43: Sodium 131 L, Potassium 4.6 H, Chloride 101, Carbon Dioxide 18 L, Anion Gap 12.0, BUN 40 H, Creatinine 2.0 H, Estimated GFR (MDRD) 32 L, Glucose 165 H, Calcium 9.9, Phosphorus 3.7, Magnesium 1.6 L, Total Bilirubin 1.6 H, AST 12, ALT 4 L, Alkaline Phosphatase 127 H, Total Protein 7.0, Albumin 3.7, Globulin 3.3, Albumin/Globulin Ratio 1.1, Lipase 11 12/05/23 16:43: PT 15.9 H, INR 1.5 H, APTT 29.2 12/05/23 16:43: WBC 7.3, RBC 2.59 L, Hgb 8.0 L, Hct 24.8 L, MCV 95.8 H, MCH 3 0.9, MCHC 32.3, RDW 16.6 H, Plt Count 214, MPV 11.8 H, Neut # (Auto) 6.2, Lymph # (Auto) 0.4 L, [place] # (Auto) 0.7, Eos # (Auto) 0.0, Baso # (Auto) 0.0, Absolute Nucleated RBC 0.00, Nucleated RBC % 0.0 12/02/23 17:46: Blood Type Recheck A POSITIVE - Diagnostic Imaging Results Diagnostic Imaging Results: positive: Read independently - Diagnosis Diagnosis: Metastatic castration wojciech prostate cancer. Bilateral ureteral obstruction with AKIN - Consultation Note Consultation Note: 83yo M with [id number] metastatic prostate cancer, castration naive with bilateral ureteral obstruction but AKIN mild - Plan Plan: I strongly recommend medical oncology evaluation as an outpatient. I will ensure this follow-up. In the meantime at baseline he requires androgen deprivation therapy to start the process of treating this metastatic disease. I recommend starting bicalutamide. I have sent in this prescription to [facility]. I will also have him see medical oncology and send a referral for this tomorrow as it is after hours now. He will require more advanced treatments. I will have my office contact him to follow-up in 2 weeks time with a basic metabolic panel. If his renal function continues to be elevated I will repeat an ultrasound. If he continues to have ureteral obstruction then he may need bilateral stents placed Patient states understanding and consents to above plan
[2023-12-05 18:42] VITALS: BP 138/71; O2SAT 95
== END 2023-12-05 18:36 | disposition home or self-care (01) ==
LOC: EDUNIT# → ED 16:26
DX: C61 Malignant neoplasm of prostate (principal); C79.51 Secondary malignant neoplasm of bone; N17.9 Acute kidney failure, unspecified; D63.1 Anemia in chronic kidney disease; N18.9 Chronic kidney disease, unspecified; E11.22 Type 2 diabetes mellitus with diabetic chronic kidney disease; Z79.84 Long term (current) use of oral hypoglycemic drugs
CPT/HCPCS: 36415; 80053; 83690; 83735; 84100; 84153; 85025; 85610; 85730; 86850; 86900; 86901; 96360; 99284; A9270

== ENCOUNTER 2023-12-17 00:52 | Outpatient (CLI) | payer MEDICARE, BC | END 2023-12-17 23:59 | disposition critical access hospital (66) | LOC: EMS 00:52 | DX: R10.32 Left lower quadrant pain (principal) | CPT/HCPCS: A0425; A0427 ==

== ENCOUNTER 2023-12-17 01:26 | Emergency (ER) | payer MEDICARE, BC ==
[2023-12-17] MEDS: SODIUM CHLORIDE 0.9% 1,000 ML IV STA (01:57)
[2023-12-17 02:10] LABS: BASOPHILS # (AUTO) 0.1 10^3/uL (0.0-0.1); EOSINOPHILS % (AUTO) 0.8 %; HCT - HEMATOCRIT 23.1 % (42.0-52.0); HGB - HEMOGLOBIN 7.4 g/dL (14.0-18.0); LYMPHOCYTES # (AUTO) 0.5 10^3/uL (1.5-3.5); LYMPHOCYTES % (AUTO) 8.8 %; MEAN CORPUSCULAR VOLUME 93.5 fL (80.0-94.0); MEAN PLATELET VOLUME 10.6 fL (7.4-11.4); MONOCYTES # (AUTO) 0.7 10^3/uL (0.0-1.0); MONOCYTES % (AUTO) 12.8 %; NEUTROPHILS # (AUTO) 3.8 10^3/uL (1.5-6.6); NEUTROPHILS % (AUTO) 75.2 %; PLT - PLATELET COUNT 257 10^3/uL (130-450); RED BLOOD COUNT 2.47 10^6/uL (4.70-6.10); RED CELL DISTRIBUTION WIDTH 16.6 % (12.0-15.0); WHITE BLOOD COUNT 5.1 x10^3/uL (4.8-10.8)
[2023-12-17 02:29] LABS: ALBUMIN 3.2 g/dL (3.2-5.5); ALBUMIN/GLOBULIN RATIO 0.9 (1.0-2.2); BILIRUBIN,TOTAL 1.2 mg/dL (0.2-1.0); CALCIUM 9.1 mg/dL (8.5-10.3); CREATININE 1.3 mg/dL (0.6-1.3); POTASSIUM 4.4 mmol/L (3.5-4.5); TOTAL PROTEIN 6.6 g/dL (6.4-8.9)
[2023-12-17] MEDS ORDERED: iohexoL-300 100 ML VIAL ONE (03:27)
[2023-12-17] MEDS: ONDANSETRON 4 MG/2 ML VIAL IVP STA ×2 (03:30→08:00)
[2023-12-17] MEDS: HYDROmorphone 1 MG/ML CARPUJECT IVP STA ×2 (03:31→08:08)
[2023-12-17] MEDS: iohexoL-300 100 ML VIAL IVP ONE (03:58)
--- NOTE | 2023-12-17 06:52 | ED Physician Documentation ---
History of Present Illness - Stated complaint Stated Complaint: ABD PX - Chief complaint Chief Complaint: Abd Pain - History obtained from History obtained from: Patient, Family - Additonal information Additional information: The patient is sent to the emergency department for chief complaint of increasing right abdominal pain and no bowel movement for the last 14 days. He was diagnosed approximately 12 days ago with metastatic prostate cancer and has been on oxycodone and MiraLAX at home. He states that he really has not been eating anything so this might be part of the reason he has the "Constipation". The patient states that he just feels a fullness in the right side of his abdomen. He is scheduled to see Dr. Jiménez on the of this month and son states that as long as the patient was coming here, Dr. Jiménez requested that we do some blood work including testosterone and PSA. The patient denies nausea or vomiting. No fevers. No other complaints at this time. PD PAST MEDICAL HISTORY - Past Medical History Past Medical History: Yes Cardiovascular: Congestive heart failure, Hypertension, High cholesterol Respiratory: None Neuro: Tremors Endocrine/Autoimmune: Type 2 diabetes HEENT: Glaucoma Other Past Medical History: prostate ca with mets - Past Surgical History Past Surgical History: Yes HEENT: Tonsil/Adenoidectomy - Present Medications Home Medications: Ambulatory Orders Medication Instructions Recorded Confirmed Furosemide [Lasix] 40 mg PO DAILY 04/08/13 12/17/23 Glipizide [Glipizide Xl] 5 mg PO DAILY 04/08/13 12/17/23 Simvastatin [Zocor] 10 mg PO HS 04/08/13 12/17/23 Metformin HCl [Metformin ER 500 mg PO BID 08/20/21 12/17/23 Osmotic] Multivitamin 1 tab PO DAILY 08/20/21 12/17/23 Ubidecarenone [Co Q-10] 300 mg PO DAILY 08/20/21 12/17/23 Vitamin B Complex 1 tab PO DAILY 08/20/21 12/17/23 oxyCODONE [Roxicodone] 5 - 10 mg PO Q6H PRN #30 tablet 12/05/23 12/17/23 MDD 6 Apixaban [Eliquis] 2.5 mg PO BID 12/17/23 12/17/23 Bicalutamide [Casodex] 50 mg PO DAILY 12/17/23 12/17/23 Cholecalciferol (Vitamin D3) 50 mcg PO DAILY 12/17/23 12/17/23 [Vitamin D3] Losartan Potassium 25 mg PO DAILY 12/17/23 12/17/23 Metoprolol Succinate [Toprol Xl] 25 mg PO DAILY 12/17/23 12/17/23 - Allergies Allergies/Adverse Reactions: Allergies Allergy/AdvReac Type Severity Reaction Status Date / Time No Known Drug Allergies Allergy Verified 12/17/23 01:37 - Social History Does the pt smoke?: No Smoking Status: Never smoker Does the pt drink ETOH?: Yes Does the pt have substance abuse?: No - POLST Patient has POLST: No PD ED PE NORMAL - Vitals Vital signs reviewed: Yes - General General: Alert and oriented X 3, No acute distress, Well developed/nourished - HEENT HEENT: Atraumatic, PERRL, EOMI, Moist mucous membranes - Neck Neck: Supple, no meningeal sign - Cardiac Cardiac: RRR, No murmur - Respiratory Respiratory: No respiratory distress, Clear bilaterally - Abdomen Abdomen: Soft, Other (Moderate distention, right slightly greater than left. No rebound or guarding.) - Derm Derm: Normal color, Warm and dry, No rash - Extremities Extremities: No deformity - Neuro Neuro: Alert and oriented X 3 - Psych Psych: Normal mood, Normal affect Results - Vitals Vitals: Vital Signs - 24 hr 12/17/23 12/17/23 12/17/23 07:00 09:00 13:00 Temperature 36.6 C Heart Rate 91 91 81 Heart Rate [ Sitting] Respiratory 15 15 15 Rate Blood Pressure 129/73 132/70 H 121/57 L Blood Pressure [Activity] Blood Pressure [Sitting] O2 Saturation 96 97 94 12/17/23 12/17/23 12/17/23 14:37 15:00 17:00 Temperature Heart Rate 97 80 Heart Rate [ 94 Sitting] Respiratory 15 15 Rate Blood Pressure 97/50 L 132/91 H Blood Pressure 87/48 L [Activity] Blood Pressure 120/107 H [Sitting] O2 Saturation 98 95 12/17/23 12/17/23 12/17/23 19:00 21:00 23:00 Temperature Heart Rate 86 78 77 Heart Rate [ Sitting] Respiratory 15 16 15 Rate Blood Pressure 135/67 H 122/57 L 115/54 L Blood Pressure [Activity] Blood Pressure [Sitting] O2 Saturation 97 96 97 12/18/23 12/18/23 12/18/23 01:00 01:45 06:00 Temperature Heart Rate 78 77 85 Heart Rate [ Sitting] Respiratory 16 16 18 Rate Blood Pressure 115/70 107/60 Blood Pressure [Activity] Blood Pressure [Sitting] O2 Saturation 98 97 98 Oxygen O2 Source Room air - Labs Labs: Laboratory Tests 12/17/23 12/17/23 12/17/23 02:07 02:07 02:07 WBC 5.1 RBC 2.47 L Hgb 7.4 L Hct 23.1 L MCV 93.5 MCH 30.0 MCHC 32.0 RDW 16.6 H Plt Count 257 MPV 10.6 Neut # (Auto) 3.8 Lymph # (Auto) 0.5 L [place] # (Auto) 0.7 Eos # (Auto) 0.0 Baso # (Auto) 0.1 Absolute Nucleated RBC 0.00 Nucleated RBC % 0.0 Sodium 133 L Potassium 4.4 Chloride 99 L Carbon Dioxide 20 L Anion Gap 14.0 H BUN 28 H Creatinine 1.3 Estimated GFR (MDRD) 53 L Glucose 163 H POC Whole Bld Glucose Calcium 9.1 Total Bilirubin 1.2 H AST 12 ALT 5 L Alkaline Phosphatase 73 Total Protein 6.6 Albumin 3.2 Globulin 3.4 Albumin/Globulin Ratio 0.9 L Lipase 32 Free PSA > 176.000 H % Free PSA TNP Total PSA > 1420.000 H Total Testosterone 12/17/23 12/17/23 02:07 21:44 WBC RBC Hgb Hct MCV MCH MCHC RDW Plt Count MPV Neut # (Auto) Lymph # (Auto) [place] # (Auto) Eos # (Auto) Baso # (Auto) Absolute Nucleated RBC Nucleated RBC % Sodium Potassium Chloride Carbon Dioxide Anion Gap BUN Creatinine Estimated GFR (MDRD) Glucose POC Whole Bld Glucose 156 H Calcium Total Bilirubin AST ALT Alkaline Phosphatase Total Protein Albumin Globulin Albumin/Globulin Ratio Lipase Free PSA % Free PSA Total PSA Total Testosterone 41 L - Rads (name of study) CT abdomen pelvis Relevant Findings:: Final report received, See rad report (Bilateral ureteral and hydronephrosis, no stones. Otherwise no acute findings.) PD Medical Decision Making - ED course Complexity details: reviewed old records, reviewed results, re-evaluated patient, considered differential, d/w patient, d/w family ED course: The patient was evaluated with labs and CT scan of the abdomen and pelvis which showed bilateral hydroureteronephrosis without stones. I discussed the case with Dr. Jiménez, who stated he felt the patient did not have long to live and would be best served by medical oncology and palliative care. He did not feel there was a surgical role for this patient. However, since he is already been aware of the patient, he stated he would present the case at tumor board and try to help arrange the next steps for the patient in terms of specialty care. I will in the meantime, he felt the patient could go home. I went and spoke with the patient and his who expressed understanding but also stated they felt they needed more help at home because the patient cannot get himself up and around. To this end I have consulted social work. The patient is signed out to Dr. Maddox at change of shift, pending social work evaluation and final disposition, which I anticipate will be home. Departure - Departure Clinical Impression: Prostate cancer Condition: Stable Instructions: Cancer Prostate Follow-Up: Yanick Jiménez MD [Family Provider] - Luann Mcmanus ARNP [Provider Admit Priv/Credential] - Within 1 week (Palliative care) Comments: Please have close follow-up with your primary care provider. Please also utilize a list of resources given to you by our elementary school social worker. Forms: PCP List
--- NOTE | 2023-12-17 08:12 | CT Report ---
PROCEDURE: Abdomen/Pelvis W INDICATIONS: metastatic CA, worsening R abd swelling/pain CONTRAST: Omni 300, 100mls TECHNIQUE: After the administration of intravenous contrast, a CT scan of the abdomen and pelvis was performed. Images were recorded and evaluated at appropriate window settings. Reformats: coronal and sagittal. F or radiation dose reduction, the following was used: automated exposure control, adjustment of mA and /or kV according to patient size. COMPARISON: 12/02/2023 FINDINGS: Image quality: Diagnostic Lower chest: Moderate right and small left effusions. Underlying opacities are present. Aortic calcif ications. Coronary calcifications. Normal heart size. Liver: Unremarkable Gallbladder and biliary system: Distended gallbladder. Mild to moderate CBD dilation at 1 cm, includi ng intrahepatic radicles. Pancreas: Mildly ectatic pancreatic duct, nonspecific. No acute inflammatory changes Spleen: Nonenlarged Adrenals: No discrete nodules Kidneys: Mild right and moderate left hydronephrosis again seen. Delayed nephrogram, greater on the l eft. Subcentimeter lesions are usually cysts, too small to characterize Vessels and lymph nodes: Retroperitoneal lymphadenopathy again seen, for example preaortic lymph node measures 2.8 cm on axial image 69, similar to prior. Pelvic lymphadenopathy also present. There are atherosclerotic calcifications. No abdominal aortic aneurysm. The main portal vein appears patent Bowel and peritoneum: Mildly distended stomach. No evidence of small bowel obstruction. No pathologic ascites or drainable abscess. Nonspecific mild presacral soft tissue edema again seen. There are col onic diverticula. Body wall: Mild anasarca. Small fat-containing umbilical hernia Pelvis: Infiltrative soft tissue again seen surrounding the prostate and neck at the bladder. Prior p rostate radiation markers. Bones: Suspected sclerotic bone metastases again seen. There are also degenerative changes. Evidence of rib fractures, nonacute appearing partially visualized. Similar superior endplate L5 height loss. IMPRESSION: Moderate right and mild left pleural effusions. Underlying pulmonary opacities are present, likely at electasis and airspace disease. These were seen previously. Metastatic pelvic or retroperitoneal lymphadenopathy and infiltrative soft tissue around the bladder neck and base of the prostate. Sclerotic bone metastases. These favor prostate adenocarcinoma. Hydronephrosis again seen involving both kidneys, greater on the left, secondary to obstruction at th e UVJs. Delayed nephrogram indicating obstructive uropathy. Distended gallbladder. Mild to moderate CBD dilation. No radiopaque gallstones. Consider LFT correlat ion. Other findings as above. Intracranial report. Reviewed by: Sergoi House MD on 12/17/2023 8:11 AM PDT Approved by: Sergio House MD on 12/17/2023 8:11 AM PDT Station ID: [id number]
--- NOTE | 2023-12-17 09:40 | ED Physician Documentation ---
ED Addendum - Addendum Addendum: 12/17/23 Patient care assumed at shift change. Patient was evaluated overnight for abdominal pain and at time of discharge apparently felt too weak to go home so social work consult was placed. Social work did evaluate the patient and did give resources. When nursing staff went in to discharge the patient though he reported feeling too weak to stand and was reportedly leaning to 1 side. He reported feeling dizzy. He does have a history of metastatic prostate cancer. On my exam he does not have any focal deficits but just reports feeling very weak and having some episodes of dizziness mostly with standing. CT head was obtained which I reviewed and I see no signs of bleeding or mass. He was given a dose of meclizine. He is reportedly feeling better and no longer having dizziness but is still quite weak with attempts at ambulation and needing a two- person assist. He is reportedly not been getting out of bed much for the past several weeks. We have placed consults for PT and OT. PT and OT have evaluated the patient and are recommending a SNF. Social work is again discussing options with family. Per social work, patient would like to consider other options overnight. I have ordered his home medications.Patient will be signed out at shift change. Departure - Departure Clinical Impression: Prostate cancer Condition: Stable Instructions: Cancer Prostate Follow-Up: Yanick Jiménez MD [Family Provider] - Luann Mcmanus ARNP [Provider Admit Priv/Credential] - Within 1 week (Palliative care) Comments: Please have close follow-up with your primary care provider. Please also utilize a list of resources given to you by our social media marketing manager. Forms: PCP List
[2023-12-17] MEDS: METOCLOPRAMIDE 10 MG TABLET PO STA (10:09)
[2023-12-17] MEDS: MECLIZINE 12.5 MG TABLET PO STA (11:15)
--- NOTE | 2023-12-17 11:42 | CT Report ---
PROCEDURE: Head WO INDICATIONS: weakness/prostate cA TECHNIQUE: Noncontrast 4.5 mm thick angled axial sections acquired from the foramen magnum to the vertex. For r adiation dose reduction, the following was used: automated exposure control, adjustment of mA and/or kV according to patient size. COMPARISON: None. FINDINGS: Image quality: Excellent. CSF spaces: Basal cisterns are patent. No extra-axial fluid collections. Ventricles are normal in size and shape. Brain: No midline shift. No intracranial masses or hemorrhage. Age-related global volume loss and c hronic microvascular ischemic changes. Intracranial atherosclerotic vascular calcifications. Camilo-w maria matter interface is normal. Skull and face: Calvarium and visualized facial bones are intact, without suspicious lesions. Sinuses: Mild ethmoid air cell mucosal thickening. Visualized sinuses and mastoids are otherwise felicia ar. IMPRESSION: 1.No acute intracranial pathology. 2.CT has low sensitivity for detecting small metastatic lesions. If there is concern for metastases, recommend MRI brain with and without contrast for further evaluation. Reviewed by: Oswaldo Hurd MD on 12/17/2023 11:40 AM PDT Approved by: Oswaldo Hurd MD on 12/17/2023 11:40 AM PDT Station ID: [id number]
[2023-12-17] MEDS: ONDANSETRON ODT 4 MG TABLET TL STA (14:43)
[2023-12-17] MEDS ORDERED: ACETAMINOPHEN 500 MG TABLET PO PRN (17:41)
[2023-12-17] MEDS: BICALUTAMIDE 50 MG PO SCH (18:39)
[2023-12-17] MEDS: oxyCODONE 5 MG TABLET PO PRN (18:40)
[2023-12-17] MEDS: metFORMIN 500 MG TABLET PO SCH (21:48)
[2023-12-17] MEDS: APIXABAN 2.5 MG TABLET PO SCH (21:48)
[2023-12-17] MEDS: ATORVASTATIN 10 MG TABLET PO SCH (21:48)
[2023-12-18] MEDS: PANTOPRAZOLE 40 MG TABLET PO SCH (08:47)
[2023-12-18] MEDS: glipiZIDE 5 MG TABLET PO SCH (08:47)
[2023-12-18] MEDS: ONDANSETRON ODT 4 MG TABLET TL PRN (08:48)
--- NOTE | 2023-12-18 09:30 | ED Physician Documentation ---
ED Addendum - Addendum Addendum: 12/18/23 09:30 Seen and examined at bedside accompanied by Idalmis our family welfare social work professor. His pain is moderately well-controlled but would like an escalation in his pain regiment and I added long-acting oxycodone 10 mg p.o. twice daily. We discussed goals of care and placement. At this point he is not interested in hospice as he still would like aggressive treatment of his cancer. I had placed a hospice consult prior to talking to him but canceled it. Idalmis is working on [employer]. 12/18/23 12:04 Now they are more amenable to hospice and the hospice consult was recreated.
[2023-12-18] MEDS: oxyCODONE ER 10 MG TABLET PO SCH (11:32)
--- NOTE | 2023-12-18 14:16 | PHARMACY PROGRESS NOTE ---
- Best Possible Medication History Admit Date and Time: Processed by: Pharmacy Medications reviewed in ED?: No Medication History completed: Yes Patient Interview: Completed Secondary Source(s): Physician records, Insurance records As the person ultimately responsible for medication therapy, providers are able to order a medication from an existing home medication list in [facility] via the "Reconcile Routine" prior to Confirmation of that medication by patient support specialist. Such practice is discouraged except when the physician, in their clinical judgment, deems that a medical need exists for a medication without regard to previous use.
--- NOTE | 2023-12-19 14:29 | ED Physician Documentation ---
ED Addendum - Addendum Addendum: 12/19/23 14:27 The patient was signed out to me at change of shift, continuing to pend arrangement for disposition and appropriate home care. The patient ultimately had agreed to hospice and I was informed by criminal justice social worker that hospice team would be dropping off equipment at the house this afternoon. As such, the patient can be discharged. The was on board with this and so was the patient. The patient was deemed stable for discharge home under these conditions. Final impression: 1. Terminal metastatic prostate cancer 2. Generalized weakness Disposition: Discharge home to hospice care in stable condition.
[2023-12-19 15:48] VITALS: BP 123/77; O2SAT 95
== END 2023-12-19 15:44 | disposition home or self-care (01) ==
LOC: EDUNIT# → ED 01:26
DX: R10.9 Unspecified abdominal pain (principal); C61 Malignant neoplasm of prostate; C79.9 Secondary malignant neoplasm of unspecified site; N13.30 Unspecified hydronephrosis; E11.9 Type 2 diabetes mellitus without complications; Z74.01 Bed confinement status; Z74.2 Need for assistance at home and no other household member able to render care
CPT/HCPCS: 36415; 70450; 74177; 80053; 83690; 84153; 84154; 84403; 85025; 96374; 96375; 96376; 97162; 97166; 99284; A9270; J1170; Q0162; Q9967

== ENCOUNTER 2023-12-19 15:24 | Outpatient (CLI) | payer MEDICARE, BC | END 2023-12-19 23:59 | disposition home or self-care (01) | LOC: EMS 15:24 | PROVIDERS: ATTEND Emergency Medicine | DX: C61 Malignant neoplasm of prostate (principal); Z74.01 Bed confinement status | CPT/HCPCS: A0425; A0428 ==